=== PATIENT | male | born 1945 | race Caucasian/White ===

== ENCOUNTER 2021-11-25 13:01 | Observation (INO) | payer MEDICARE, OTHER ==
[2021-11-25] MEDS ORDERED: BACIGUENT PACKET ONE (13:26)
[2021-11-25] MEDS: Sodium Chloride 0.9% 1000 ML 1,000 ML IV SCH (13:33)
[2021-11-25] MEDS ORDERED: BACIGUENT PACKET TP ONE (13:43)
[2021-11-25 13:50] LABS: Absolute Neutrophil Ct (ANC) 3.95 x10^3/uL (1.4-6.9); Basophil (Absolute #) 0.02 x10^3/uL (0-0.4); Eosinophil % 0.4 % (0.00-5.0); Eosinophil (Absolute #) 0.02 x10^3/uL (0-0.5); Hematocrit 32.1 % (42-50); Hemoglobin 10.2 g/dL (12.5-18.0); Lymphocyte (Absolute #) 1.18 x10^3/uL (1.0-4.6); Lymphocytes % 20.8 % (24.0-44.0); Mean Cell Volume 96.4 fL (78-100); Mean Corpuscular Hemoglobin 30.6 pg (26-32); Mean Corpuscular Hgb Concent. 31.8 g/dL (32-36); Mean Platelet Volume 9.5 fL (7.5-11.0); Monocyte (Absolute #) 0.48 x10^3/uL (0.0-1.3); Monocytes % 8.5 % (0.0-12.0); Neutrophil % 69.7 % (36.0-66.0); Platelet Count 166 x10^3/uL (150-450); Red Blood Count 3.33 x10^6/uL (4.1-5.6); Red Cell Distribution Width 13.2 % (11.5-14.0); White Blood Count 5.7 x10^3/uL (4.0-10.5)
[2021-11-25 13:56] LABS: ALBUMIN 3.1 g/dL (3.5-5.0); ALKALINE PHOSPHATASE 134 U/L (38-126); ANION GAP 9.9 MEQ/L (5-15); BLOOD UREA NITROGEN 14 mg/dL (9-20); CHLORIDE 104 mmol/L (98-107); Calcium 8.9 mg/dL (8.4-10.2); Carbon Dioxide 29 mmol/L (22-30); EST GLOMERULAR FILTRATION RATE > 60.0 ML/MIN; Glucose 91 mg/dL (74-106); Potassium 3.9 mmol/L (3.5-5.1); SGOT/AST 37 U/L (17-59); SGPT/ALT 15 U/L (0-50); SODIUM 138 mmol/L (137-145); Total Protein 6.9 g/dL (6.3-8.2)
--- NOTE | 2021-11-25 14:06 | XRAY ---
Indication: Confusion. Comparison: None Portable chest hyperinflated and clear with a few incidental tiny calcified granulomas. Heart not enlarged with left central venous access catheter. Bony thorax intact with mild osteopenia, advanced bilateral shoulder degenerative arthropathy, mild double curvature scoliosis, and remote T11-T12 compression fractures. Impression: Nonacute chest with chronic features.
--- NOTE | 2021-11-25 14:08 | XRAY ---
Indication: Injection to right knee. Comparison: None AP/crosstable lateral right knee using portable technique demonstrates posterior femur shaft cortical fracture of uncertain chronicity. Elsewhere osteopenia, total knee arthroplasty with intact prosthesis, chronic appearing tibial deformity presumed sequela of old injury, and moderate scattered vascular calcifications.
[2021-11-25 14:15] LABS: Appearance CLEAR (CLEAR); Bilirubin NEGATIVE (NEGATIVE); Dipstick done @ ? MAIN LAB; Glucose NEGATIVE (NEGATIVE); Ketones SMALL-15 (NEGATIVE); Nitrite NEGATIVE (NEGATIVE); Ph 6.5 (5-6); Protein,Urine Dip 30 (Negative); RBC MODERATE Ery/ul (0-5); Specific Gravity 1.025 (1.005-1.025); Urobilinogen 0.2 mg/dL (0-1)
[2021-11-25 14:17] LABS: Bacteria FEW /HPF (NEGATIVE); Epithelial Cells RARE /HPF (FEW); Mucus SLIGHT /HPF (NEGATIVE); RBC 26-50 /HPF (0-2); WBC 26-50 /HPF (0-5)
[2021-11-25 14:19] LABS: Urine Cultured Indicated? YES
--- NOTE | 2021-11-25 14:38 | ERPHSYRPT ---
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 Patient A+O X 3. Patient's skin pale, warm and dry. Patient's POA states patient has been having intermittent confusion and doesn't remember him coming to check on him several times yesterday and today. Patient has infected wounds noted to RLE. Patient complains of right elbow pain and joint pain 5/10. 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 The assessment [facility] that yesterday he was more confused he seemed very out of it and was not even fully dressed yesterday. The caregiver did visit him 4 times today he seemed better but he decided to bring him to the ER. He is followed for his hemophilia at [facility] and he is followed for chronic infection of an artificial knee at wound care at [facility]. Caregiver is concerned that this might represent a recurrence of generalized sepsis since he has been confused with infection in the past.Presently he is on doxycycline and a culture was done at [facility] well want wound care on 11 21 which grew negative.The caregiver also reports that the patient has infection in the right leg which is not responded to antibiotics he was told that the only cure would be to amputate the right lower extremity just below the hip but that was not done because the risk of surgery for this patient is too great. Timing/Duration: day(s) (2) Severity: moderate Associated Symptoms: loss of appetite, malaise, weakness Allergies/Adverse Reactions: No Known Drug Allergies Allergy (Verified 11/25/21 13:10) Home Medications: Bisacodyl 5 mg [Dulcolax 5 mg] 2 tab PO BID 09/28/12 [History] Calcium Carbonate/Vitamin D3 [Calcium 600 + Vit D Tablet] 1 each PO BID 09/28/12 [History] Docusate Sodium 100 mg [Colace 100 MG] 2 tab PO BID 09/28/12 [History] Factor XIII [Corifact] 3,000 units IV DAILY 09/28/12 [History] Loratadine 10 mg [Claritin 10 mg] 10 mg PO BID 09/28/12 [History] Lorazepam 1 mg [Ativan 1 MG] 1 - 2 mg PO HS PRN 09/28/12 [History] Methadone HCl 10 mg [DOLOPHINE 10MG Tablet] 4 - 6 tab PO Q4-6HPRN PRN 09/28/12 [History] Celecoxib [Celebrex] 200 mg PO DAILY 01/03/13 [History] Fluticasone Propionate [Flonase] 16 gm NS DAILY 01/03/13 [History] Multivits,Th W-Ca,Fe,Oth Min [Spectravite] 1 each PO DAILY 01/03/13 [History] Hx Tetanus, Diphtheria Vaccination/Date Given: No Hx Influenza Vaccination/Date Given: Yes (02/25) Hx Pneumococcal Vaccination/Date Given: Yes (unknown when) Immunizations Up to Date: Yes Travel Risk - International Travel Have you traveled outside of the country in past 3 weeks: No - Coronavirus Screening Are you exhibiting any of the following symptoms?: No Close contact with a COVID-19 positive Pt in past 14-21 Days: No - Vaccine Status Have you recieved a Covid-19 vaccination: Yes Nurse Sitter: Unknown - Vaccination Dates Date of 2cond Vaccination (if applicable): na Dates if Unknown: na - Review of Systems Constitutional: Lethargy, Malaise, Weakness Eyes: No Symptoms Ears, Nose, & Throat: No Symptoms Respiratory: No Cough, No Dyspnea Cardiac: No Chest Pain, No Edema, No Syncope Abdominal/Gastrointestinal: No Abdominal Pain, No Nausea, No Vomiting, No Diarrhea Genitourinary Symptoms: No Dysuria Musculoskeletal: Other (Examination of the lower extremities show surgical scars over both legs the right leg has a medullary nely both in the femur and in the tibia and a total artificial knee. It is red and his has several weeping areas and apparently there is over ulcer which extends to the bone. This is according to t) Skin: Cellulitis, Decubiti, Skin Lesions Neurological: Focal Weakness Psychological: No Symptoms Endocrine: Polyuria Hematologic/Lymphatic: Easy Bleeding, Easy Bruising Immunological/Allergic: No Symptoms - Past Medical History Pertinent Past Medical History: Yes Neurological History: No Pertinent History ENT History: No Pertinent History Cardiac History: No Pertinent History Respiratory History: No Pertinent History Endocrine Medical History: No Pertinent History Musculoskeletal History: Osteoarthritis, Osteoporosis GI Medical History: Cirrhosis History: No Pertinent History Psycho-Social History: No Pertinent History Male Reproductive Disorders: No Pertinent History Other Medical History: B TKA, R JEFF. Hx of hemophilia - Past Surgical History Past Surgical History: Yes Neuro Surgical History: No Pertinent History Cardiac: No Pertinent History Respiratory: No Pertinent History Gastrointestinal: No Pertinent History Genitourinary: No Pertinent History Musculoskeletal: Joint Replacement, Orthopedic Surgery Male Surgical History: No Pertinent History Other Surgical History: left elbow spurs removed, Bilateral knee replacements, Left hip replacement. - Social History Smoking Status: Never smoker Exposure to second hand smoke: No Drug Use: none Patient Lives Alone: Yes - Nursing Vital Signs Nursing Vital Signs: Initial Vital Signs Temperature 98.6 F 11/25/21 13:11 Pulse Rate 79 11/25/21 13:11 Respiratory Rate 19 11/25/21 13:11 Blood Pressure 181/93 11/25/21 13:11 O2 Sat by Pulse Oximetry 100 11/25/21 13:11 Pain Scale Pain Intensity 5 - Physical Exam General Appearance: mild distress Eye Exam: PERRL/EOMI, eyes nml inspection Ears, Nose, Throat Exam: normal ENT inspection Neck Exam: normal inspection, non-tender, supple, full range of motion Respiratory Exam: normal breath sounds, lungs clear, No respiratory distress Cardiovascular Exam: regular rate/rhythm, normal heart sounds, normal peripheral pulses Gastrointestinal/Abdomen Exam: soft, normal bowel sounds, No tenderness, No mass Extremity Exam: other (Both lower extremities have had knee replacements with medullary rods. The right leg is swollen has weeping lesions has ulcers and is warm to the touch and tender.) Neurologic Exam: alert, oriented x 3, cooperative Skin Exam: ecchymosis Lymphatic Exam: No adenopathy SpO2 Interpretation: normal SpO2: 100 O2 Delivery: Room Air - Course Nursing assessment & vital signs reviewed: Yes EKG Interpreted by Me: RATE, Sinus Rhythm, Right Muse Deviation, LAFB, Right [place] Block, Non-specific ST Changes - Radiology Exams Chest X-ray Interpretation: Reviewed by me Right Knee X-ray Interpretation: Reviewed by me Ordered Tests: Active Orders 24 hr Category Date Time Status CHEST 1 VIEW (PORTABLE) Stat Exams 11/25/21 13:23 Completed KNEE (1 OR 2 VIEW) Stat Exams 11/25/21 13:23 Completed BLOOD CULTURE Stat Lab 11/25/21 13:17 Received CBC W DIFF Stat Lab 11/25/21 13:30 Completed CMP Stat Lab 11/25/21 13:30 Completed CULTURE,URINE Stat Lab 11/25/21 13:58 Received CULTURE,WOUND Stat Lab 11/25/21 13:25 Received Lactic Acid Stat Lab 11/25/21 13:30 Completed SED RATE [Erythrocyte Sedimentation Rate] Stat Lab 11/25/21 14:06 Ordered UA W/RFX CULTURE Stat Lab 11/25/21 13:58 Completed Medication Summary Generic Name Dose Route Start Last Admin Trade Name Freq PRN Reason Stop Dose Admin Sodium Chloride 1,000 mls @ 100 mls/hr 11/25/21 13:30 11/25/21 13:33 Sodium Chloride 0.9% 1000 Ml IV 12/25/21 13:29 100 mls/hr .Q10H CHUYITA Administration Vancomycin HCl 1 gm in 200 mls @ 125 mls/hr 11/25/21 15:17 Vancomycin 1 Gram/200 Ml Bag IV 11/25/21 16:52 STAT ONE Metronidazole 500 mg in 100 mls @ 200 mls/hr 11/25/21 15:19 11/25/21 15:24 Flagyl 500 Mg Ivpb IV 11/25/21 15:48 200 mls/hr STAT STA 200 mls/hr Administration Ceftazidime 2 gm/ Dextrose 100 mls @ 200 mls/hr 11/25/21 15:30 IV 12/25/21 15:29 Q8H CHUYITA Discontinued Medications Generic Name Dose Route Start Last Admin Trade Name Freq PRN Reason Stop Dose Admin Bacitracin Zinc Confirm 11/25/21 13:26 Bacitracin Packet 1 Each Pckt Administered 11/25/21 13:27 Dose 10 each .ROUTE .STK-MED ONE Bacitracin Zinc 9 each 11/25/21 13:43 11/25/21 13:44 Bacitracin Packet 1 Each Pckt TP 11/25/21 13:44 9 each STAT ONE Administration Metronidazole Confirm 11/25/21 15:23 Flagyl 500 Mg Ivpb Administered 11/25/21 15:24 Dose 500 mg in 100 mls @ ud IV .STK-MED ONE Lab/Rad Data: Laboratory Result Diagrams 11/25/21 13:30 11/25/21 13:30 Laboratory Results 11/25/21 11/25/21 11/25/21 Range/Units 13:58 13:30 13:30 WBC (4.0-10.5) x10^3/uL RBC (4.1-5.6) x10^6/uL Hgb (12.5-18.0) g/dL Hct (42-50) % MCV (78-100) fL MCH (26-32) pg MCHC (32-36) g/dL RDW (11.5-14.0) % Plt Count (150-450) x10^3/uL MPV (7.5-11.0) fL Gran % (36.0-66.0) % Immature Gran % (Auto) (0.00-0.4) % Nucleat RBC Rel Count (0.00-0.1) % Eos # (Auto) (0-0.5) x10^3/uL Immature Gran # (Auto) (0.00-0.03) x10^3u/L Absolute Lymphs (auto) (1.0-4.6) x10^3/uL Absolute Monos (auto) (0.0-1.3) x10^3/uL Absolute Nucleated RBC (0.00-0.01) x10^3u/L Lymphocytes % (24.0-44.0) % Monocytes % (0.0-12.0) % Eosinophils % (0.00-5.0) % Basophils % (0.0-0.4) % Absolute Granulocytes (1.4-6.9) x10^3/uL Basophils # (0-0.4) x10^3/uL Sodium 138 (137-145) mmol/L Potassium 3.9 (3.5-5.1) mmol/L Chloride 104 (98-107) mmol/L Carbon Dioxide 29 (22-30) mmol/L Anion Gap 9.9 (5-15) MEQ/L BUN 14 (9-20) mg/dL Creatinine 0.80 (0.66-1.25) mg/dL Estimated GFR > 60.0 ML/MIN Glucose 91 (74-106) mg/dL Lactic Acid 0.8 (0.4-2.0) Calcium 8.9 (8.4-10.2) mg/dL Total Bilirubin 0.80 (0.2-1.3) mg/dL AST 37 (17-59) U/L ALT 15 (0-50) U/L Alkaline Phosphatase 134 H (38-126) U/L Serum Total Protein 6.9 (6.3-8.2) g/dL Albumin 3.1 L (3.5-5.0) g/dL Urinalys Dipstick Clnc MAIN LAB Urine Color YELLOW (YELLOW) Urine Appearance CLEAR (CLEAR) Urine pH 6.5 (5-6) Ur Specific [place] 1.025 (1.005-1.025) POC Urine Protein Conf 30 (Negative) Urine Ketones SMALL-15 (NEGATIVE) Urine Nitrite NEGATIVE (NEGATIVE) Urine Bilirubin NEGATIVE (NEGATIVE) Urine Urobilinogen 0.2 (0-1) mg/dL Urine Leukocytes SMALL (NEGATIVE) Urine WBC (Auto) 26-50 (0-5) /HPF Urine RBC (Auto) 26-50 (0-2) /HPF U Epithel Cells (Auto) RARE (FEW) /HPF Urine Bacteria (Auto) FEW (NEGATIVE) /HPF Urine RBC MODERATE (0-5) Polo/ul Urine Mucus (Auto) SLIGHT (NEGATIVE) /HPF Ur Culture Indicated? YES Urine Glucose NEGATIVE (NEGATIVE) mg/dL 11/25/21 Range/Units 13:30 WBC 5.7 (4.0-10.5) x10^3/uL RBC 3.33 L (4.1-5.6) x10^6/uL Hgb 10.2 L (12.5-18.0) g/dL Hct 32.1 L (42-50) % MCV 96.4 (78-100) fL MCH 30.6 (26-32) pg MCHC 31.8 L (32-36) g/dL RDW 13.2 (11.5-14.0) % Plt Count 166 (150-450) x10^3/uL MPV 9.5 (7.5-11.0) fL Gran % 69.7 H (36.0-66.0) % Immature Gran % (Auto) 0.2 (0.00-0.4) % Nucleat RBC Rel Count 0.0 (0.00-0.1) % Eos # (Auto) 0.02 (0-0.5) x10^3/uL Immature Gran # (Auto) 0.01 (0.00-0.03) x10^3u/L Absolute Lymphs (auto) 1.18 (1.0-4.6) x10^3/uL Absolute Monos (auto) 0.48 (0.0-1.3) x10^3/uL Absolute Nucleated RBC 0.00 (0.00-0.01) x10^3u/L Lymphocytes % 20.8 L (24.0-44.0) % Monocytes % 8.5 (0.0-12.0) % Eosinophils % 0.4 (0.00-5.0) % Basophils % 0.4 (0.0-0.4) % Absolute Granulocytes 3.95 (1.4-6.9) x10^3/uL Basophils # 0.02 (0-0.4) x10^3/uL Sodium (137-145) mmol/L Potassium (3.5-5.1) mmol/L Chloride (98-107) mmol/L Carbon Dioxide (22-30) mmol/L Anion Gap (5-15) MEQ/L BUN (9-20) mg/dL Creatinine (0.66-1.25) mg/dL Estimated GFR ML/MIN Glucose (74-106) mg/dL Lactic Acid (0.4-2.0) Calcium (8.4-10.2) mg/dL Total Bilirubin (0.2-1.3) mg/dL AST (17-59) U/L ALT (0-50) U/L Alkaline Phosphatase (38-126) U/L Serum Total Protein (6.3-8.2) g/dL Albumin (3.5-5.0) g/dL Urinalys Dipstick Clnc Urine Color (YELLOW) Urine Appearance (CLEAR) Urine pH (5-6) Ur Specific [place] (1.005-1.025) POC Urine Protein Conf (Negative) Urine Ketones (NEGATIVE) Urine Nitrite (NEGATIVE) Urine Bilirubin (NEGATIVE) Urine Urobilinogen (0-1) mg/dL Urine Leukocytes (NEGATIVE) Urine WBC (Auto) (0-5) /HPF Urine RBC (Auto) (0-2) /HPF U Epithel Cells (Auto) (FEW) /HPF Urine Bacteria (Auto) (NEGATIVE) /HPF Urine RBC (0-5) Polo/ul Urine Mucus (Auto) (NEGATIVE) /HPF Ur Culture Indicated? Urine Glucose (NEGATIVE) mg/dL - Progress Progress: unchanged Discussed with : Rosa Elena (Dr. Sanders will admit the patient here Pending transfer to [facility]), Other (We did speak with Dr. 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 Addi guerra who agreed to admit him) - Departure Departure Disposition: Observation Clinical Impression: Chronic osteomyelitis involving lower leg Condition: Fair Critical Care Time: No Referrals: PAULETTE PURI MD [Primary Care Provider] - Follow up/PCP as directed
[2021-11-25] MEDS ORDERED: VANCOMYCIN 1 GRAM/200 ML BAG 1 GM/200 ML PIGGYBACK IV ONE ×2 (15:17→16:03)
[2021-11-25] MEDS ORDERED: FLAGYL 500 MG IVPB 500 MG/100 ML BAG IV STA (15:19)
[2021-11-25] MEDS ORDERED: FLAGYL 500 MG IVPB 500 MG/100 ML BAG IV ONE (15:23)
[2021-11-25] MEDS ORDERED: Zofran 4 MG/2 ML VIAL IV PRN (15:33)
[2021-11-25 16:00] LABS: INFLUENZA A NEGATIVE (NEGATIVE); INFLUENZA B NEGATIVE (NEGATIVE); RESPIRATORY SYNCTIAL VIRUS NEGATIVE (Negative); SARS-CoV-2 Xpert Express NEGATIVE (NEGATIVE)
[2021-11-25] MEDS ORDERED: VANCOMYCIN 1 GRAM/200 ML BAG 1 GM/200 ML PIGGYBACK IV SCH (16:15)
[2021-11-25] MEDS ORDERED: DOLOPHINE 10MG Tablet ONE (18:06)
[2021-11-25] MEDS: Fortaz/Tazicef 2 GM in D5w 100ML Mini Bag 100 ML 100 ML IV SCH (18:11)
[2021-11-25] MEDS: FLAGYL 500 MG IVPB 500 MG/100 ML BAG IV SCH (18:47)
--- NOTE | 2021-11-25 21:45 | PCM.HP ---
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 The assessment by his caregiver and power of manager car is that yesterday he was more confused he seemed very out of it and was not even fully dressed yesterday. The caregiver did visit him 4 times today he seemed better but he decided to bring him to the ER. He is followed for his hemophilia at [facility] and he is followed for chronic infection of an artificial knee at wound care at [facility]. Caregiver is concerned that this might represent a recurrence of generalized sepsis since he has been confused with infection in the past.Presently he is on doxycycline and a culture was done at [facility] well want wound care on 11 21 which grew negati ve.The caregiver also reports that the patient has infection in the right leg which is not responded to antibiotics he was told that the only cure would be to amputate the right lower extremity just below the hip but that was not done because the risk of surgery for this patient is too great. Timing/Duration: day(s) (2) Severity: moderate Associated Symptoms: loss of appetite, malaise, weakness - Review of Systems Constitutional: No Fever, No Chills Eyes: No Symptoms Ears, Nose, & Throat: No Symptoms Respiratory: No Cough, No Short Of Breath Cardiac: No Chest Pain, No Edema, No Syncope Abdominal/Gastrointestinal: No Abdominal Pain, No Nausea, No Vomiting, No Diarrhea Genitourinary Symptoms: No Dysuria Musculoskeletal: Joint Redness, Joint Pain, No Back Pain, No Neck Pain Skin: No Rash Neurological: No Dizziness, No Focal Weakness, No Sensory Changes Psychological: No Symptoms Endocrine: No Symptoms Hematologic/Lymphatic: No Symptoms Immunological/Allergic: No Symptoms Medications & Allergies Home Medications: Home Medication List Factor XIII [Corifact] 3,000 units IV BID 09/28/12 [History Confirmed 11/25/21] Lorazepam 1 mg [Ativan 1 MG] 1 - 2 mg PO HS PRN 09/28/12 [History Confirmed 11/25/21] Methadone HCl 10 mg [DOLOPHINE 10MG Tablet] 2 tab PO TID PRN PRN 09/28/12 [History Confirmed 11/25/21] Celecoxib [Celebrex] 200 mg PO BID 01/03/13 [History Confirmed 11/25/21] Docusate Sodium 100 mg [Docusate Sodium 100 MG] 100 mg PO DAILY 11/25/21 [History Confirmed 11/25/21] Famotidine 20 mg PO BID 11/25/21 [History Confirmed 11/25/21] Folic Acid/Vit B Complex and C [B-Complex Plus Vitamin C] 1 each PO DAILY 11/25/21 [History Confirmed 11/25/21] Gabapentin [Neurontin ] 1 - 2 tab PO TID 11/25/21 [History Confirmed 11/25/21] Oxycodone HCl 15 mg PO Q4H PRN PRN 11/25/21 [History Confirmed 11/25/21] Pregabalin 50 mg [Lyrica 50MG] 50 mg PO BID 11/25/21 [History Confirmed 11/25/21] ondansetron HCL [Zofran] 4 mg PO DAILY 11/25/21 [History Confirmed 11/25/21] Allergies/Adverse Reactions: Allergies Allergy/AdvReac Type Severity Reaction Status Date / Time No Known Drug Allergies Allergy Verified 11/25/21 17:54 - Past Medical History Past Medical History: Yes Neurological History: No Pertinent History ENT History: No Pertinent History Cardiac History: No Pertinent History Respiratory History: No Pertinent History Endocrine Medical History: No Pertinent History Musculoskelatal History: Osteoarthritis, Osteoporosis GI Medical History: Cirrhosis History: No Pertinent History Pyscho-Social History: No Pertinent History Male Reproductive Disorders: No Pertinent History Comment: Bilat Total knee, R total hip. Hx of hemophilia - Past Surgical History Past Surgical History: Yes Neuro Surgical History: No Pertinent History Cardiac History: No Pertinent History Respiratory Surgery: No Pertinent History GI Surgical History: No Pertinent History Genitourinary Surgical Hx: No Pertinent History Musculskeletal Surgical Hx: Joint Replacement, Orthopedic Surgery Male Surgical History: No Pertinent History Other Surgical History: left elbow spurs removed, Bilateral knee replacements, Left hip replacement. - Social History Smoking Status: Never smoker Exposure to second hand smoke: No Alcohol: None Drug Use: none - Physical Exam Vital Signs: Vital Signs - 24 hr Temp Pulse Resp BP Pulse Ox 11/25/21 20:00 96.8 F 67 16 168/77 98 11/25/21 17:33 98.7 F 71 19 178/77 97 11/25/21 15:31 100 11/25/21 15:00 71 17 175/81 99 11/25/21 14:11 75 17 172/84 100 11/25/21 13:11 98.6 F 79 19 181/93 100 General Appearance: no apparent distress, alert Neurologic Exam: alert, oriented x 3, cooperative, normal mood/affect, nml cerebellar function, nml station & gait, sensation nml, No motor deficits Eye Exam: PERRL/EOMI, eyes nml inspection Ears, Nose, Throat Exam: normal ENT inspection, TMs normal, pharynx normal, moist mucous membranes Neck Exam: normal inspection, non-tender, supple, full range of motion Respiratory Exam: normal breath sounds, lungs clear, No respiratory distress Cardiovascular Exam: regular rate/rhythm, normal heart sounds, normal peripheral pulses Gastrointestinal/Abdomen Exam: soft, normal bowel sounds, No tenderness, No mass Back Exam: normal inspection, normal range of motion, No CVA tenderness, No vertebral tenderness Extremity Exam: normal inspection, normal range of motion, pelvis stable Skin Exam: normal color, warm, dry, No rash Lymphatic Exam: No adenopathy Results - Labs Lab/Micro Results: Lab Results-Last 24 Hours 11/25/21 11/25/21 11/25/21 Range/Units 13:30 13:30 13:30 WBC 5.7 (4.0-10.5) x10^3/uL RBC 3.33 L (4.1-5.6) x10^6/uL Hgb 10.2 L (12.5-18.0) g/dL Hct 32.1 L (42-50) % MCV 96.4 (78-100) fL MCH 30.6 (26-32) pg MCHC 31.8 L (32-36) g/dL RDW 13.2 (11.5-14.0) % Plt Count 166 (150-450) x10^3/uL MPV 9.5 (7.5-11.0) fL Gran % 69.7 H (36.0-66.0) % Immature Gran % (Auto) 0.2 (0.00-0.4) % Nucleat RBC Rel Count 0.0 (0.00-0.1) % Eos # (Auto) 0.02 (0-0.5) x10^3/uL Immature Gran # (Auto) 0.01 (0.00-0.03) x10^3u/L Absolute Lymphs (auto) 1.18 (1.0-4.6) x10^3/uL Absolute Monos (auto) 0.48 (0.0-1.3) x10^3/uL Absolute Nucleated RBC 0.00 (0.00-0.01) x10^3u/L Lymphocytes % 20.8 L (24.0-44.0) % Monocytes % 8.5 (0.0-12.0) % Eosinophils % 0.4 (0.00-5.0) % Basophils % 0.4 (0.0-0.4) % Absolute Granulocytes 3.95 (1.4-6.9) x10^3/uL Basophils # 0.02 (0-0.4) x10^3/uL ESR (0-15) mm/hr Sodium 138 (137-145) mmol/L Potassium 3.9 (3.5-5.1) mmol/L Chloride 104 (98-107) mmol/L Carbon Dioxide 29 (22-30) mmol/L Anion Gap 9.9 (5-15) MEQ/L BUN 14 (9-20) mg/dL Creatinine 0.80 (0.66-1.25) mg/dL Estimated GFR > 60.0 ML/MIN Glucose 91 (74-106) mg/dL Lactic Acid 0.8 (0.4-2.0) Calcium 8.9 (8.4-10.2) mg/dL Total Bilirubin 0.80 (0.2-1.3) mg/dL AST 37 (17-59) U/L ALT 15 (0-50) U/L Alkaline Phosphatase 134 H (38-126) U/L Serum Total Protein 6.9 (6.3-8.2) g/dL Albumin 3.1 L (3.5-5.0) g/dL Urinalys Dipstick Clnc Urine Color (YELLOW) Urine Appearance (CLEAR) Urine pH (5-6) Ur Specific Occidental (1.005-1.025) POC Urine Protein Conf (Negative) Urine Ketones (NEGATIVE) Urine Nitrite (NEGATIVE) Urine Bilirubin (NEGATIVE) Urine Urobilinogen (0-1) mg/dL Urine Leukocytes (NEGATIVE) Urine WBC (Auto) (0-5) /HPF Urine RBC (Auto) (0-2) /HPF U Epithel Cells (Auto) (FEW) /HPF Urine Bacteria (Auto) (NEGATIVE) /HPF Urine RBC (0-5) Polo/ul Urine Mucus (Auto) (NEGATIVE) /HPF Ur Culture Indicated? Urine Glucose (NEGATIVE) mg/dL Influenza Type A Ag (NEGATIVE) Influenza Type B Ag (NEGATIVE) RSV (PCR) (Negative) SARS-CoV-2 (PCR) (NEGATIVE) 11/25/21 11/25/21 11/25/21 Range/Units 13:58 14:06 15:10 WBC (4.0-10.5) x10^3/uL RBC (4.1-5.6) x10^6/uL Hgb (12.5-18.0) g/dL Hct (42-50) % MCV (78-100) fL MCH (26-32) pg MCHC (32-36) g/dL RDW (11.5-14.0) % Plt Count (150-450) x10^3/uL MPV (7.5-11.0) fL Gran % (36.0-66.0) % Immature Gran % (Auto) (0.00-0.4) % Nucleat RBC Rel Count (0.00-0.1) % Eos # (Auto) (0-0.5) x10^3/uL Immature Gran # (Auto) (0.00-0.03) x10^3u/L Absolute Lymphs (auto) (1.0-4.6) x10^3/uL Absolute Monos (auto) (0.0-1.3) x10^3/uL Absolute Nucleated RBC (0.00-0.01) x10^3u/L Lymphocytes % (24.0-44.0) % Monocytes % (0.0-12.0) % Eosinophils % (0.00-5.0) % Basophils % (0.0-0.4) % Absolute Granulocytes (1.4-6.9) x10^3/uL Basophils # (0-0.4) x10^3/uL ESR 52 H (0-15) mm/hr Sodium (137-145) mmol/L Potassium (3.5-5.1) mmol/L Chloride (98-107) mmol/L Carbon Dioxide (22-30) mmol/L Anion Gap (5-15) MEQ/L BUN (9-20) mg/dL Creatinine (0.66-1.25) mg/dL Estimated GFR ML/MIN Glucose (74-106) mg/dL Lactic Acid (0.4-2.0) Calcium (8.4-10.2) mg/dL Total Bilirubin (0.2-1.3) mg/dL AST (17-59) U/L ALT (0-50) U/L Alkaline Phosphatase (38-126) U/L Serum Total Protein (6.3-8.2) g/dL Albumin (3.5-5.0) g/dL Urinalys Dipstick Clnc MAIN LAB Urine Color YELLOW (YELLOW) Urine Appearance CLEAR (CLEAR) Urine pH 6.5 (5-6) Ur Specific Occidental 1.025 (1.005-1.025) POC Urine Protein Conf 30 (Negative) Urine Ketones SMALL-15 (NEGATIVE) Urine Nitrite NEGATIVE (NEGATIVE) Urine Bilirubin NEGATIVE (NEGATIVE) Urine Urobilinogen 0.2 (0-1) mg/dL Urine Leukocytes SMALL (NEGATIVE) Urine WBC (Auto) 26-50 (0-5) /HPF Urine RBC (Auto) 26-50 (0-2) /HPF U Epithel Cells (Auto) RARE (FEW) /HPF Urine Bacteria (Auto) FEW (NEGATIVE) /HPF Urine RBC MODERATE (0-5) Polo/ul Urine Mucus (Auto) SLIGHT (NEGATIVE) /HPF Ur Culture Indicated? YES Urine Glucose NEGATIVE (NEGATIVE) mg/dL Influenza Type A Ag NEGATIVE (NEGATIVE) Influenza Type B Ag NEGATIVE (NEGATIVE) RSV (PCR) NEGATIVE (Negative) SARS-CoV-2 (PCR) NEGATIVE (NEGATIVE) - Radiology Impressions Radiology Exams & Impressions: Radiology Procedures Category Date Time Status CHEST 1 VIEW (PORTABLE) Stat Exams 11/25/21 13:23 Completed KNEE (1 OR 2 VIEW) Stat Exams 11/25/21 13:23 Completed Assessment/Plan (1) Chronic osteomyelitis involving lower leg Current Visit: Yes Status: Acute Qualifiers: Laterality: right Qualified Code(s): M86.661 - Other chronic osteomyelitis, right tibia and fibula Assessment & Plan: Chief Complaint Diagnosis osteomylitis Allergies Allergy/AdvReac Type Severity Reaction Status Date / Time No Known Drug Allergies Allergy Verified 11/25/21 17:54 Vital Signs (Last 24 hours) Temp Pulse Resp BP Pulse Ox 11/25/21 20:00 96.8 F 67 16 168/77 98 11/25/21 17:33 98.7 F 71 19 178/77 97 11/25/21 15:31 100 11/25/21 15:00 71 17 175/81 99 11/25/21 14:11 75 17 172/84 100 11/25/21 13:11 98.6 F 79 19 181/93 100 Home Medications Medication Instructions Recorded Confirmed Last Taken Type Docusate Sodium 100 mg 100 mg PO DAILY 11/25/21 11/25/21 Unknown History [Docusate Sodium 100 MG] Famotidine 20 mg PO BID 11/25/21 11/25/21 Unknown History Folic Acid/Vit B Complex and C 1 each PO DAILY 11/25/21 11/25/21 Unknown History [B-Complex Plus Vitamin C] Gabapentin [Neurontin ] 1 - 2 tab PO TID 11/25/21 11/25/21 Unknown History Oxycodone HCl 15 mg PO Q4H PRN PRN 11/25/21 11/25/21 Unknown History Pregabalin 50 mg [Lyrica 50 mg PO BID 11/25/21 11/25/21 Unknown History 50MG] ondansetron HCL [Zofran] 4 mg PO DAILY 11/25/21 11/25/21 Unknown History Current Medications Generic Name Dose Route Start Last Admin Trade Name Freq PRN Reason Stop Dose Admin Celecoxib 200 mg 11/25/21 22:00 Celecoxib 100 Mg Capsule PO 12/25/21 21:59 BID CHUYITA Famotidine 20 mg 11/25/21 22:00 Famotidine 20 Mg Tablet PO 11/25/21 22:01 ONCE ONE Gabapentin 300 mg 11/25/21 22:00 Gabapentin 300 Mg Capsule PO 12/25/21 21:59 BID CHUYITA Sodium Chloride 1,000 mls @ 100 mls/hr 11/25/21 13:30 11/25/21 13:33 Sodium Chloride 0.9% 1000 Ml IV 12/25/21 13:29 100 mls/hr .Q10H CHUYITA Administration Ceftazidime 2 gm/ Dextrose 100 mls @ 200 mls/hr 11/25/21 15:30 11/25/21 18:11 IV 12/25/21 15:29 200 mls/hr Q8HT CHUYITA Administration Metronidazole 500 mg in 100 mls @ 200 mls/hr 11/25/21 18:00 11/25/21 18:47 Flagyl 500 Mg Ivpb IV 12/25/21 17:59 200 mls/hr Q6HT CHUYITA Administration Vancomycin HCl 500 gm/ Sodium 250 mls @ 125 mls/hr 11/26/21 22:00 Chloride IV 12/26/21 21:59 Q12HT CHUYITA Lorazepam 1 mg 11/25/21 22:00 Lorazepam 1 Mg Tablet PO 12/25/21 21:59 HS CHUYITA Methadone HCl 20 mg 11/25/21 22:00 11/25/21 18:11 Methadone Hcl 10 Mg Tab PO 11/30/21 21:59 20 mg TID CHUYITA Administration Miscellaneous Medication 1 ea 11/25/21 22:00 11/25/21 20:26 Miscellaneous Medication Order 1 Ea Each 11/25/21 22:01 1 ea NOW ONE Administration Ondansetron HCl 4 mg 11/25/21 15:33 Ondansetron Hcl 4 Mg/2 Ml Vial IV 12/25/21 15:32 Q6H PRN PRN NAUSEA/VOMITING Pregabalin 50 mg 11/25/21 22:00 Pregabalin 50 Mg Capsule PO 12/25/21 21:59 BID CHUYITA Discontinued Medications Generic Name Dose Route Start Last Admin Trade Name Freq PRN Reason Stop Dose Admin Bacitracin Zinc Confirm 11/25/21 13:26 Bacitracin Packet 1 Each Pckt Administered 11/25/21 13:27 Dose 10 each .ROUTE .STK-MED ONE Bacitracin Zinc 9 each 11/25/21 13:43 11/25/21 13:44 Bacitracin Packet 1 Each Pckt TP 11/25/21 13:44 9 each STAT ONE Administration Vancomycin HCl 1 gm in 200 mls @ 125 mls/hr 11/25/21 15:17 11/25/21 16:03 Vancomycin 1 Gram/200 Ml Bag IV 11/25/21 16:52 125 mls/hr STAT ONE 125 mls/hr Administration Metronidazole 500 mg in 100 mls @ 200 mls/hr 11/25/21 15:19 11/25/21 16:01 Flagyl 500 Mg Ivpb IV 11/25/21 15:48 Infused STAT STA Infusion Metronidazole Confirm 11/25/21 15:23 Flagyl 500 Mg Ivpb Administered 11/25/21 15:24 Dose 500 mg in 100 mls @ ud IV .STK-MED ONE Vancomycin HCl Confirm 11/25/21 16:03 Vancomycin 1 Gram/200 Ml Bag Administered 11/25/21 16:04 Dose 1 gm in 200 mls @ ud IV .STK-MED ONE Vancomycin HCl 1 gm in 200 mls @ 125 mls/hr 11/25/21 16:15 11/25/21 18:38 Vancomycin 1 Gram/200 Ml Bag IV 12/25/21 16:14 Not Given Q12H CHUYITA Methadone HCl Confirm 11/25/21 18:06 Methadone Hcl 10 Mg Tab Administered 11/25/21 18:07 Dose 20 mg .ROUTE .STK-MED ONE Intake & Output (Last 24 hours) 11/23/21 11/24/21 11/25/21 11/26/21 11:59 11:59 11:59 11:59 Intake Total 120 Balance 120 Weight 46.5 kg Microbiology Results (Last 24 hours) 11/25/21 13:58 Clean Catch Midstream Urine Culture - Pending 11/25/21 13:25 Skin - Right Front Wound Culture - Pending 11/25/21 13:30 Blood Blood Culture Gram Stain - Pending 11/25/21 13:30 Blood Blood Culture - Pending Laboratory Results (Last 24 hours) 11/25/21 11/25/21 11/25/21 15:10 14:06 13:58 WBC RBC Hgb Hct MCV MCH MCHC RDW Plt Count MPV Gran % Immature Gran % (Auto) Nucleat RBC Rel Count Eos # (Auto) Immature Gran # (Auto) Absolute Lymphs (auto) Absolute Monos (auto) Absolute Nucleated RBC Lymphocytes % Monocytes % Eosinophils % Basophils % Absolute Granulocytes Basophils # ESR 52 H Sodium Potassium Chloride Carbon Dioxide Anion Gap BUN Creatinine Estimated GFR Glucose Lactic Acid Calcium Total Bilirubin AST ALT Alkaline Phosphatase Serum Total Protein Albumin Urinalys Dipstick Clnc MAIN LAB Urine Color YELLOW Urine Appearance CLEAR Urine pH 6.5 Ur Specific Occidental 1.025 POC Urine Protein Conf 30 Urine Ketones SMALL-15 Urine Nitrite NEGATIVE Urine Bilirubin NEGATIVE Urine Urobilinogen 0.2 Urine Leukocytes SMALL Urine WBC (Auto) 26-50 Urine RBC (Auto) 26-50 U Epithel Cells (Auto) RARE Urine Bacteria (Auto) FEW Urine RBC MODERATE Urine Mucus (Auto) SLIGHT Ur Culture Indicated? YES Urine Glucose NEGATIVE Influenza Type A Ag NEGATIVE Influenza Type B Ag NEGATIVE RSV (PCR) NEGATIVE SARS-CoV-2 (PCR) NEGATIVE 11/25/21 11/25/21 11/25/21 13:30 13:30 13:30 WBC 5.7 RBC 3.33 L Hgb 10.2 L Hct 32.1 L MCV 96.4 MCH 30.6 MCHC 31.8 L RDW 13.2 Plt Count 166 MPV 9.5 Gran % 69.7 H Immature Gran % (Auto) 0.2 Nucleat RBC Rel Count 0.0 Eos # (Auto) 0.02 Immature Gran # (Auto) 0.01 Absolute Lymphs (auto) 1.18 Absolute Monos (auto) 0.48 Absolute Nucleated RBC 0.00 Lymphocytes % 20.8 L Monocytes % 8.5 Eosinophils % 0.4 Basophils % 0.4 Absolute Granulocytes 3.95 Basophils # 0.02 ESR Sodium 138 Potassium 3.9 Chloride 104 Carbon Dioxide 29 Anion Gap 9.9 BUN 14 Creatinine 0.80 Estimated GFR > 60.0 Glucose 91 Lactic Acid 0.8 Calcium 8.9 Total Bilirubin 0.80 AST 37 ALT 15 Alkaline Phosphatase 134 H Serum Total Protein 6.9 Albumin 3.1 L Urinalys Dipstick Clnc Urine Color Urine Appearance Urine pH Ur Specific Occidental POC Urine Protein Conf Urine Ketones Urine Nitrite Urine Bilirubin Urine Urobilinogen Urine Leukocytes Urine WBC (Auto) Urine RBC (Auto) U Epithel Cells (Auto) Urine Bacteria (Auto) Urine RBC Urine Mucus (Auto) Ur Culture Indicated? Urine Glucose Influenza Type A Ag Influenza Type B Ag RSV (PCR) SARS-CoV-2 (PCR) Orders (Last 24 hours) Category Date Time Status Bedrest ROUTINE Activity 11/25/21 15:34 Active Code Status Order ROUTINE Care 11/25/21 15:32 Active IV Care Q6H Care 11/25/21 15:32 Active Neuro Checks Q4H Care 11/25/21 15:[address] in Observation ROUTINE Care 11/25/21 15:32 Active Vital Signs Q4H Care 11/25/21 15:33 Active Weight,Daily 0600 Care 11/25/21 15:33 Active House Regular Diet Diet 11/25/21 Dinner Active CHEST 1 VIEW (PORTABLE) Stat Exams 11/25/21 13:23 Completed KNEE (1 OR 2 VIEW) Stat Exams 11/25/21 13:23 Completed BLOOD CULTURE Stat Lab 11/25/21 13:17 Received CBC W DIFF AM.LAB Lab 11/26/21 04:00 Ordered CBC W DIFF Stat Lab 11/25/21 13:30 Completed CMP AM.LAB Lab 11/26/21 04:00 Ordered CMP Stat Lab 11/25/21 13:30 Completed COVID/FLU/RSV Panel Stat Lab 11/25/21 15:10 Completed CULTURE,URINE Stat Lab 11/25/21 13:58 Received CULTURE,WOUND Stat Lab 11/25/21 13:25 Received Lactic Acid Stat Lab 11/25/21 13:30 Completed SED RATE [Erythrocyte Sedimentation Rate] Stat Lab 11/25/21 14:06 Completed UA W/RFX CULTURE Stat Lab 11/25/21 13:58 Completed Bacitracin Packet [Baciguent Packet] Med 11/25/21 13:26 Discontinued 10 each .ROUTE .STK-MED ONE Bacitracin Packet [Baciguent Packet] Med 11/25/21 13:43 Discontinued 9 each TP STAT ONE Ceftazidime Pentahydrate [Fortaz/Tazicef] 2 gm Med 11/25/21 15:30 Active D5w 100 ml [D5w 100ML Mini Bag 100 ML] 100 ml IV Q8HT Celecoxib 100 mg [celeBREX 100 MG] Med 11/25/21 22:00 Active 200 mg PO BID Famotidine 20 mg [Pepcid 20 MG] Med 11/25/21 22:00 Once 20 mg PO ONCE ONE Gabapentin [Neurontin ] Med 11/25/21 22:00 Active 300 mg PO BID Lorazepam 1 mg [Ativan 1 MG] Med 11/25/21 22:00 Active 1 mg PO HS Methadone HCl 10 mg [DOLOPHINE 10MG Tablet] Med 11/25/21 18:06 Discontinued 20 mg .ROUTE .STK-MED ONE Methadone HCl 10 mg [DOLOPHINE 10MG Tablet] Med 11/25/21 22:00 Active 20 mg PO TID Metronidazole 500 mg Premix [Flagyl 500 mg Ivpb] Med 11/25/21 18:00 Active 500 mg in 100 ml IV Q6HT Metronidazole 500 mg Premix [Flagyl 500 mg Ivpb] Med 11/25/21 15:19 Discontinued 500 mg in 100 ml IV STAT Metronidazole 500 mg Premix [Flagyl 500 mg Ivpb] Med 11/25/21 15:23 Discontinued 500 mg in 100 ml IV UD Miscellaneous Medication Order Med 11/25/21 22:00 Once 1 ea MC NOW ONE NaCl 0.9% 1000 ml [Sodium Chloride 0.9% 1000 ML] 1,000 Med 11/25/21 13:30 Active ml IV 100 mls/hr Ondansetron HCl 4 mg/2 ml [Zofran 4 MG/2 ML VIAL] Med 11/25/21 15:33 Active 4 mg IV Q6H PRN PRN Pregabalin 50 mg [Lyrica 50MG] Med 11/25/21 22:00 Active 50 mg PO BID Vancomycin HCl Inj [Vancocin Injection] 500 gm Med 11/26/21 22:00 Active NaCl 0.9% 250 ml [Sodium Chloride 0.9% 250 ML] 250 ml IV Q12HT Vancomycin/Water For Inj (Peg) [Vancomycin 1 Gram/200 Med 11/25/21 16:15 Discontinued ml Bag] 1 gm in 200 ml IV Q12H Vancomycin/Water For Inj (Peg) [Vancomycin 1 Gram/200 Med 11/25/21 15:17 Discontinued ml Bag] 1 gm in 200 ml IV STAT Vancomycin/Water For Inj (Peg) [Vancomycin 1 Gram/200 Med 11/25/21 16:03 Discontinued ml Bag] 1 gm in 200 ml IV UD Transfer Order Routine Transfer 11/25/21 Completed Code(s): M86.669 - OTHER CHRONIC OSTEOMYELITIS, UNSPECIFIED TIBIA AND FIBULA
[2021-11-25] MEDS: celeBREX 100 MG PO SCH (21:49)
[2021-11-25] MEDS: Lyrica 50MG PO SCH (21:49)
[2021-11-25] MEDS ORDERED: Miscellaneous Medication Order MC ONE (22:00)
[2021-11-25] MEDS ORDERED: Ativan 1 MG PO SCH (22:00)
[2021-11-25] MEDS ORDERED: NEURONTIN PO SCH (22:00)
[2021-11-25] MEDS ORDERED: DOLOPHINE 10MG Tablet PO SCH (22:00)
[2021-11-25] MEDS ORDERED: Pepcid 20 MG PO ONE (22:00)
[2021-11-25] MEDS: Oxy-IR 5 MG PO PRN (22:33)
[2021-11-26] MEDS: Fortaz/Tazicef 2 GM in D5w 100ML Mini Bag 100 ML 100 ML IV SCH ×5 (00:49→21:05)
[2021-11-26] MEDS: FLAGYL 500 MG IVPB 500 MG/100 ML BAG IV SCH ×5 (00:52→23:46)
[2021-11-26] MEDS: Sodium Chloride 0.9% 1000 ML 1,000 ML IV SCH ×3 (01:04→23:45)
[2021-11-26 05:56] LABS: Basophil (Absolute #) 0.02 x10^3/uL (0-0.4); Eosinophil % 5.4 % (0.00-5.0); Eosinophil (Absolute #) 0.15 x10^3/uL (0-0.5); Hematocrit 25.7 % (42-50); Lymphocyte (Absolute #) 0.97 x10^3/uL (1.0-4.6); Lymphocytes % 34.8 % (24.0-44.0); Mean Cell Volume 98.5 fL (78-100); Mean Corpuscular Hemoglobin 30.7 pg (26-32); Mean Corpuscular Hgb Concent. 31.1 g/dL (32-36); Monocyte (Absolute #) 0.35 x10^3/uL (0.0-1.3); Monocytes % 12.5 % (0.0-12.0); Neutrophil % 46.6 % (36.0-66.0); Platelet Count 112 x10^3/uL (150-450); Red Blood Count 2.61 x10^6/uL (4.1-5.6); Red Cell Distribution Width 13.5 % (11.5-14.0); White Blood Count 2.8 x10^3/uL (4.0-10.5)
[2021-11-26 06:24] LABS: ALBUMIN 2.2 g/dL (3.5-5.0); ALKALINE PHOSPHATASE 89 U/L (38-126); ANION GAP 7.2 MEQ/L (5-15); BLOOD UREA NITROGEN 13 mg/dL (9-20); CHLORIDE 109 mmol/L (98-107); Calcium 7.9 mg/dL (8.4-10.2); Carbon Dioxide 27 mmol/L (22-30); EST GLOMERULAR FILTRATION RATE > 60.0 ML/MIN; Glucose 77 mg/dL (74-106); Potassium 3.4 mmol/L (3.5-5.1); SGOT/AST 29 U/L (17-59); SGPT/ALT 11 U/L (0-50); SODIUM 139 mmol/L (137-145); Total Protein 5.1 g/dL (6.3-8.2)
[2021-11-26] MEDS ORDERED: Ativan 1 MG PO PRN (07:13)
[2021-11-26 07:27] LABS: Slide Review 1 YES
[2021-11-26] MEDS ORDERED: PATIENT OWN MEDICATION IV SCH (10:00)
[2021-11-26] MEDS: PATIENT OWN MEDICATION IV SCH (10:21)
[2021-11-26] MEDS: celeBREX 100 MG PO SCH ×2 (10:26→21:03)
[2021-11-26] MEDS: Pepcid 20 MG PO SCH ×2 (10:27→21:03)
[2021-11-26] MEDS: Docusate Sodium 100 MG PO SCH (10:27)
[2021-11-26] MEDS: DOLOPHINE 10MG Tablet PO PRN (10:27)
[2021-11-26] MEDS: Lyrica 50MG PO SCH ×2 (10:27→21:03)
[2021-11-26] MEDS: NEURONTIN PO SCH ×3 (10:28→21:12)
[2021-11-26] MEDS: VITA-BEE WITH C PO SCH (11:03)
[2021-11-26] MEDS ORDERED: PATIENT OWN MEDICATION IV PRN ×2 (20:00)
[2021-11-26] MEDS: Oxy-IR 5 MG PO PRN (21:26)
[2021-11-26] MEDS ORDERED: VANCOCIN IV SCH (22:00)
[2021-11-26] MEDS ORDERED: SODIUM CHLORIDE 0.9% IV SCH (22:00)
[2021-11-26] MEDS: VANCOCIN IV SCH (22:43)
[2021-11-26] MEDS: SODIUM CHLORIDE MINI IV SCH (22:43)
[2021-11-27] MEDS: FLAGYL 500 MG IVPB 500 MG/100 ML BAG IV SCH ×3 (05:06→16:53)
--- NOTE | 2021-11-27 07:53 | PCM.NOTE ---
Date and Time: 11/27/21 0752 Subjective Assessment: doing ok - Review of Systems Constitutional: No Fever, No Chills Eyes: No Symptoms Ears, Nose, & Throat: No Symptoms Respiratory: No Cough, No Short Of Breath Cardiac: No Chest Pain, No Edema, No Syncope Abdominal/Gastrointestinal: No Abdominal Pain, No Nausea, No Vomiting, No Diarrhea Genitourinary Symptoms: No Dysuria Musculoskeletal: No Back Pain, No Neck Pain Skin: No Rash Neurological: No Dizziness, No Focal Weakness, No Sensory Changes Psychological: No Symptoms Endocrine: No Symptoms Hematologic/Lymphatic: No Symptoms Immunological/Allergic: No Symptoms Objective Exam General Appearance: no apparent distress, alert Neurologic Exam: alert, oriented x 3, cooperative, normal mood/affect, nml cerebellar function, sensation nml, No motor deficits Skin Exam: normal color, warm, dry Eye Exam: PERRL, EOMI, eyes nml inspection Ears, Nose, Throat Exam: normal ENT inspection, pharynx normal, moist mucous membranes Neck Exam: normal inspection, non-tender, supple, full range of motion Respiratory Exam: normal breath sounds, lungs clear, No respiratory distress Cardiovascular Exam: regular rate/rhythm, normal heart sounds Gastrointestinal/Abdomen Exam: soft, No tenderness, No mass Extremity Exam: normal inspection, normal range of motion Back Exam: normal inspection, normal range of motion, No CVA tenderness, No vertebral tenderness Male Genitalia Exam: deferred Rectal Exam: deferred OBJECTIVE DATA Vital Signs: Vital Signs - 24 hr Temp Pulse Resp BP Pulse Ox 11/27/21 07:17 97.8 F 61 16 131/63 99 11/27/21 04:00 97.1 F 55 L 16 136/60 98 11/27/21 00:00 97.5 F 95 H 18 147/67 96 11/26/21 20:00 97.5 F 50 L 16 141/64 98 11/26/21 16:00 96.6 F 68 16 125/61 97 11/26/21 12:00 97.8 F 68 16 162/75 97 11/26/21 08:00 97.0 F 57 L 16 128/60 98 Pain Assessment - Last Documented Pain Intensity 0 Pain Scale Used 0-10 Pain Scale Intake and Output: Intake & Output 11/24/21 11/25/21 11/26/21 11/27/21 11:59 11:59 11:59 11:59 Intake Total 1770 1812 Output Total 125 350 Balance 1645 1462 Weight 49.2 kg 51.7 kg Radiology Exams: Radiology Procedures Category Date Time Status CHEST 1 VIEW (PORTABLE) Stat Exams 11/25/21 13:23 Completed KNEE (1 OR 2 VIEW) Stat Exams 11/25/21 13:23 Completed Multi-Disciplinary Progress Notes: Multi-Disciplinary Progress Notes 11/26/21 12:36 Case Management Note by Davida Barger WILL HOLD DC PLANNING AT THIS TIME- PATIENT WAITING ON A BED AT [facility] WILL HAVE A BED LATER TODAY Initialized on 11/26/21 12:36 - END OF NOTE 11/26/21 12:30 Case Management Note by Davida Barger PATIENT HAS [facility]. THEY WERE NOTIFIED PATIENT IS HERE OBS AND IS WAITI NG ON BED AT [facility]. THEY VERIFIED UNDERSTANDING. IF PLANS WOULD CHANGE AND PATIENT WOULD DC HOME FROM HERE- [facility] NEEDS TO BE NOTIFIED AT [phone]. THEY NEED FAXED THE DC INSTRUCTIONS, DC MED LIST AND DC SUMMARY ( IF AVAILABLE) TO [phone] Initialized on 11/26/21 12:30 - END OF NOTE Assessment/Plan (1) Chronic osteomyelitis involving lower leg Current Visit: Yes Status: Acute Qualifiers: Laterality: right Qualified Code(s): M86.661 - Other chronic osteomyelitis, right tibia and fibula Assessment & Plan: Chief Complaint Diagnosis pain in leg right side Allergies Allergy/AdvReac Type Severity Reaction Status Date / Time No Known Drug Allergies Allergy Verified 11/25/21 17:54 Vital Signs (Last 24 hours) Temp Pulse Resp BP Pulse Ox 11/27/21 07:17 97.8 F 61 16 131/63 99 11/27/21 04:00 97.1 F 55 L 16 136/60 98 11/27/21 00:00 97.5 F 95 H 18 147/67 96 11/26/21 20:00 97.5 F 50 L 16 141/64 98 11/26/21 16:00 96.6 F 68 16 125/61 97 11/26/21 12:00 97.8 F 68 16 162/75 97 11/26/21 08:00 97.0 F 57 L 16 128/60 98 Home Medications Medication Instructions Recorded Confirmed Last Taken Type Docusate Sodium 100 mg 100 mg PO DAILY 11/25/21 11/25/21 Unknown History [Docusate Sodium 100 MG] Famotidine 20 mg PO BID 11/25/21 11/25/21 Unknown History Folic Acid/Vit B Complex and C 1 each PO DAILY 11/25/21 11/25/21 Unknown History [B-Complex Plus Vitamin C] Gabapentin [Neurontin ] 1 - 2 tab PO TID 11/25/21 11/25/21 Unknown History Oxycodone HCl 15 mg PO Q4H PRN PRN 11/25/21 11/25/21 Unknown History Pregabalin 50 mg [Lyrica 50 mg PO BID 11/25/21 11/25/21 Unknown History 50MG] ondansetron HCL [Zofran] 4 mg PO DAILY 11/25/21 11/25/21 Unknown History Current Medications Generic Name Dose Route Start Last Admin Trade Name Freq PRN Reason Stop Dose Admin Celecoxib 200 mg 11/25/21 22:00 11/26/21 21:03 Celecoxib 100 Mg Capsule PO 12/25/21 21:59 200 mg BID CHUYITA Administration Docusate Sodium 100 mg 11/26/21 10:00 11/26/21 10:27 Docusate Sodium 100 Mg Capsule PO 12/26/21 09:59 100 mg DAILY CHUYITA Administration Famotidine 20 mg 11/26/21 10:00 11/26/21 21:03 Famotidine 20 Mg Tablet PO 12/26/21 09:59 20 mg BID CHUYITA Administration Gabapentin 300 - 600 mg 11/26/21 10:00 11/26/21 21:12 Gabapentin 300 Mg Capsule PO 12/26/21 09:59 300 mg TID CHUYITA Administration Sodium Chloride 1,000 mls @ 100 mls/hr 11/25/21 13:30 11/26/21 23:45 Sodium Chloride 0.9% 1000 Ml IV 12/25/21 13:29 100 mls/hr .Q10H CHUYITA Administration Metronidazole 500 mg in 100 mls @ 200 mls/hr 11/25/21 18:00 11/27/21 05:06 Flagyl 500 Mg Ivpb IV 12/25/21 17:59 200 mls/hr Q6HT CHUYITA Administration Vancomycin HCl 0.5 gm/ Sodium 100 mls @ 125 mls/hr 11/26/21 22:00 11/26/21 22:43 Chloride IV 12/26/21 21:59 125 mls/hr Q12HT CHUYITA Administration Ceftazidime 2 gm/ Dextrose 100 mls @ 200 mls/hr 11/26/21 10:00 11/26/21 21:05 IV 12/25/21 15:29 200 mls/hr Q12HT CHUYITA Administration Lorazepam 1 - 2 mg 11/26/21 07:13 11/26/21 21:04 Lorazepam 1 Mg Tablet PO 12/26/21 07:12 1 mg HS PRN PRN Administration ANXIETY Methadone HCl 20 mg 11/26/21 07:14 11/26/21 10:27 Methadone Hcl 10 Mg Tab PO 12/01/21 07:13 20 mg TID PRN PRN Administration PAIN Multivitamins 1 tab 11/26/21 10:00 11/26/21 11:03 Vitamin B Complex With Vit. C Tablet PO 12/26/21 09:59 Not Given DAILY CHUYITA Ondansetron HCl 4 mg 11/25/21 15:33 11/26/21 20:55 Ondansetron Hcl 4 Mg/2 Ml Vial IV 12/25/21 15:32 4 mg Q6H PRN PRN Administration NAUSEA/VOMITING Oxycodone HCl 15 mg 11/25/21 22:24 11/26/21 21:26 Oxycodone Hcl 5 Mg Ir Tab PO 11/30/21 22:23 15 mg Q4H PRN PRN Administration PAIN Recombinate-Factor 8 0 each 11/26/21 11:00 11/26/21 10:21 (Viii) IV 12/26/21 10:59 2,520 each 0800 CHUYITA Administration Recombinate-Factor 8 0 each 11/26/21 20:00 (Viii) IV 12/26/21 19:59 Q24H PRN Recombinate-Factor 8 2,520 each 11/26/21 20:00 11/26/21 21:03 (Viii) IV 12/26/21 19:59 2,520 each Q24H PRN Administration Pregabalin 50 mg 11/25/21 22:00 11/26/21 21:03 Pregabalin 50 Mg Capsule PO 12/25/21 21:59 50 mg BID CHUYITA Administration Discontinued Medications Generic Name Dose Route Start Last Admin Trade Name Gretel PRN Reason Stop Dose Admin Bacitracin Zinc Confirm 11/25/21 13:26 Bacitracin Packet 1 Each Pckt Administered 11/25/21 13:27 Dose 10 each .ROUTE .STK-MED ONE Bacitracin Zinc 9 each 11/25/21 13:43 11/25/21 13:44 Bacitracin Packet 1 Each Pckt TP 11/25/21 13:44 9 each STAT ONE Administration Famotidine 20 mg 11/25/21 22:00 11/25/21 21:53 Famotidine 20 Mg Tablet PO 11/25/21 22:01 20 mg ONCE ONE Administration Gabapentin 300 mg 11/25/21 22:00 11/25/21 21:49 Gabapentin 300 Mg Capsule PO 12/25/21 21:59 300 mg BID CHUYITA Administration Vancomycin HCl 1 gm in 200 mls @ 125 mls/hr 11/25/21 15:17 11/25/21 16:03 Vancomycin 1 Gram/200 Ml Bag IV 11/25/21 16:52 125 mls/hr STAT ONE 125 mls/hr Administration Metronidazole 500 mg in 100 mls @ 200 mls/hr 11/25/21 15:19 11/25/21 16:01 Flagyl 500 Mg Ivpb IV 11/25/21 15:48 Infused STAT STA Infusion Ceftazidime 2 gm/ Dextrose 100 mls @ 200 mls/hr 11/25/21 15:30 11/26/21 11:02 IV 12/25/21 15:29 Not Given Q8HT CHUYITA Metronidazole Confirm 11/25/21 15:23 Flagyl 500 Mg Ivpb Administered 11/25/21 15:24 Dose 500 mg in 100 mls @ ud IV .STK-MED ONE Vancomycin HCl Confirm 11/25/21 16:03 Vancomycin 1 Gram/200 Ml Bag Administered 11/25/21 16:04 Dose 1 gm in 200 mls @ ud IV .STK-MED ONE Vancomycin HCl 1 gm in 200 mls @ 125 mls/hr 11/25/21 16:15 11/25/21 18:38 Vancomycin 1 Gram/200 Ml Bag IV 12/25/21 16:14 Not Given Q12H CHUYITA Vancomycin HCl 500 gm/ Sodium 250 mls @ 125 mls/hr 11/26/21 22:00 Chloride IV 12/26/21 21:59 Q12HT CHUYITA Lorazepam 1 mg 11/25/21 22:00 11/25/21 21:49 Lorazepam 1 Mg Tablet PO 12/25/21 21:59 1 mg HS CHUYITA Administration Methadone HCl 20 mg 11/25/21 22:00 11/25/21 18:11 Methadone Hcl 10 Mg Tab PO 11/30/21 21:59 20 mg TID CHUYITA Administration Methadone HCl Confirm 11/25/21 18:06 Methadone Hcl 10 Mg Tab Administered 11/25/21 18:07 Dose 20 mg .ROUTE .STK-MED ONE Miscellaneous Medication 1 ea 11/25/21 22:00 11/25/21 20:26 Miscellaneous Medication Order 1 Ea Each MC 11/25/21 22:01 1 ea NOW ONE Administration Patient Own Med : 0 each 11/26/21 10:00 11/26/21 11:10 Recombinate-Factor 8 IV 12/26/21 09:59 Not Given (Viii) DAILY CHUYITA Intake & Output (Last 24 hours) 11/24/21 11/25/21 11/26/21 11/27/21 11:59 11:59 11:59 11:59 Intake Total 1770 1812 Output Total 125 350 Balance 1645 1462 Weight 49.2 kg 51.7 kg Microbiology Results (Last 24 hours) 11/25/21 13:58 Clean Catch Midstream Urine Culture - Preliminary NO GROWTH TO DATE 11/25/21 13:30 Blood Blood Culture Gram Stain - Final 11/25/21 13:30 Blood Blood Culture - Pending Orders (Last 24 hours) Category Date Time Status Ceftazidime Pentahydrate [Fortaz/Tazicef] 2 gm Med 11/26/21 10:00 Active D5w 100 ml [D5w 100ML Mini Bag 100 ML] 100 ml IV Q12HT Docusate Sodium 100 mg [Docusate Sodium 100 MG] Med 11/26/21 10:00 Active 100 mg PO DAILY Famotidine 20 mg [Pepcid 20 MG] Med 11/26/21 10:00 Active 20 mg PO BID Gabapentin [Neurontin ] Med 11/26/21 10:00 Active 300 - 600 mg PO TID Lorazepam 1 mg [Ativan 1 MG] Med 11/26/21 07:13 Active 1 - 2 mg PO HS PRN PRN Methadone HCl 10 mg [DOLOPHINE 10MG Tablet] Med 11/26/21 07:14 Active 20 mg PO TID PRN PRN Patient Own Med [Patient Own Medication] Med 11/26/21 20:00 Active 2,520 each IV Q24H PRN Patient Own Med [Patient Own Medication] Med 11/26/21 11:00 Active See Dose Instructions IV 0800 Patient Own Med [Patient Own Medication] Med 11/26/21 10:00 Discontinued See Dose Instructions IV DAILY Patient Own Med [Patient Own Medication] Med 11/26/21 20:00 Active See Dose Instructions IV Q24H PRN Vancomycin HCl Inj [Vancocin Injection] 0.5 gm Med 11/26/21 22:00 Active NaCl 0.9% 100 ml Mini-Bag Plus [Sodium Chloride 100ML MINI-BAG PLUS] 100 ml IV Q12HT Vancomycin HCl Inj [Vancocin Injection] 500 gm Med 11/26/21 22:00 Discontinued NaCl 0.9% 250 ml [Sodium Chloride 0.9% 250 ML] 250 ml IV Q12HT Vitamin B Comp W-C [Karlene-Bee with C] Med 11/26/21 10:00 Active 1 tab PO DAILY Patient Care Notes (Last 24 hours) 11/27/21 07:47 MECHANICAL SYSTEM TECHNICIAN Note by Hyacinth Anne pt weighed this am and weight was off so zeroed the bed and reweighed pt. pt weight this am is 51.7 kg this principal technologist reported the weight to nurse Kelvin De. Initialized on 11/27/21 07:47 - END OF NOTE 11/26/21 15:16 Nursing Note by Mireya Billy spoke again with Mariana at Dr. Leiva's office and she stated that she let the doctor know the pt's labs and condition. States that the doctor would just like for him to take the "major bleeding" dose of his factor medication. passed info on to Ricardo in pharmacy. Initialized on 11/26/21 15:16 - END OF NOTE 11/26/21 14:35 Nursing Note by Mireya Billy Spoke with a nurse at the pharmacy at Dr. Leiva's office. notified her of pt's swelling in elbow and hgb that dropped this morning. She is going to call one of the doctors and call me back on what next steps need to be. Initialized on 11/26/21 14:35 - END OF NOTE 11/26/21 12:36 Case Management Note by Davida Barger WILL HOLD DC PLANNING AT THIS TIME- PATIENT WAITING ON A BED AT [facility] WILL HAVE A BED LATER TODAY Initialized on 11/26/21 12:36 - END OF NOTE 11/26/21 12:30 Case Management Note by Davida Barger PATIENT HAS [facility]. THEY WERE NOTIFIED PATIENT IS HERE OBS AND IS WAITING ON BED AT [facility]. THEY VERIFIED UNDERSTANDING. IF PLANS WOULD CHANGE AND PATIENT WOULD DC HOME FROM HERE- [facility] NEEDS TO BE NOTIFIED AT [phone]. THEY NEED FAXED THE DC INSTRUCTIONS, DC MED LIST AND DC SUMMARY ( IF AVAILABLE) TO [phone] Initialized on 11/26/21 12:30 - END OF NOTE 11/26/21 08:42 Nursing Note by Mireya Billy Spoke with Shanell at [facility], she states that there are still no beds at this time but hopefully will be this afternoon. Code(s): M86.669 - OTHER CHRONIC OSTEOMYELITIS, UNSPECIFIED TIBIA AND FIBULA
[2021-11-27] MEDS: PATIENT OWN MEDICATION IV SCH (07:56)
[2021-11-27] MEDS: Lyrica 50MG PO SCH (10:11)
[2021-11-27] MEDS: celeBREX 100 MG PO SCH (10:11)
[2021-11-27] MEDS: Docusate Sodium 100 MG PO SCH (10:11)
[2021-11-27] MEDS: Pepcid 20 MG PO SCH (10:11)
[2021-11-27] MEDS: NEURONTIN PO SCH ×2 (10:12→15:42)
[2021-11-27] MEDS: Fortaz/Tazicef 2 GM in D5w 100ML Mini Bag 100 ML 100 ML IV SCH (10:12)
[2021-11-27] MEDS: SODIUM CHLORIDE MINI IV SCH (10:13)
[2021-11-27] MEDS: VANCOCIN IV SCH (10:13)
[2021-11-27] MEDS: VITA-BEE WITH C PO SCH (10:14)
[2021-11-27] MEDS: Sodium Chloride 0.9% 1000 ML 1,000 ML IV SCH ×2 (12:14)
[2021-11-27] MEDS ORDERED: PATIENT OWN MEDICATION IV PRN (12:45)
[2021-11-27 16:10] VITALS: BP 179/82; PULSE 84; O2SAT 97
[2021-11-27] MEDS: DOLOPHINE 10MG Tablet PO PRN (16:49)
--- NOTE | 2021-11-27 17:19 | PCM.DS ---
Discharge Summary Date of Admission: 11/25/21 17:16 Admitting Physician: MIKE MUNSON Primary Care Provider: PAULETTE PURI MD Allergies Allergies No Known Drug Allergies Allergy (Verified 11/25/21 17:54) Hospital Summary - Hospital Course Hospital Course: Chief Complaint Diagnosis pain in leg right side Allergies Allergy/AdvReac Type Severity Reaction Status Date / Time No Known Drug Allergies Allergy Verified 11/25/21 17:54 Vital Signs (Last 24 hours) Temp Pulse Resp BP Pulse Ox 11/27/21 16:00 98.6 F 84 16 179/82 97 11/27/21 12:00 97.4 F 62 16 173/93 96 11/27/21 07:17 97.8 F 61 16 131/63 99 11/27/21 04:00 97.1 F 55 L 16 136/60 98 11/27/21 00:00 97.5 F 95 H 18 147/67 96 11/26/21 20:00 97.5 F 50 L 16 141/64 98 Home Medications Medication Instructions Recorded Confirmed Last Taken Type Docusate Sodium 100 mg 100 mg PO DAILY 11/25/21 11/25/21 Unknown History [Docusate Sodium 100 MG] Famotidine 20 mg PO BID 11/25/21 11/25/21 Unknown History Folic Acid/Vit B Complex and C 1 each PO DAILY 11/25/21 11/25/21 Unknown History [B-Complex Plus Vitamin C Cplt] Gabapentin [Neurontin ] 1 - 2 tab PO TID 11/25/21 11/25/21 Unknown History Oxycodone HCl 15 mg PO Q4H PRN PRN 11/25/21 11/25/21 Unknown History Pregabalin 50 mg [Lyrica 50 mg PO BID 11/25/21 11/25/21 Unknown History 50MG] ondansetron HCL [Zofran] 4 mg PO DAILY 11/25/21 11/25/21 Unknown History Current Medications Generic Name Dose Route Start Last Admin Trade Name Freq PRN Reason Stop Dose Admin Celecoxib 200 mg 11/25/21 22:00 11/27/21 10:11 Celecoxib 100 Mg Capsule PO 12/25/21 21:59 200 mg BID CHUYITA Administration Docusate Sodium 100 mg 11/26/21 10:00 11/27/21 10:11 Docusate Sodium 100 Mg Capsule PO 12/26/21 09:59 100 mg DAILY CHUYITA Administration Famotidine 20 mg 11/26/21 10:00 11/27/21 10:11 Famotidine 20 Mg Tablet PO 12/26/21 09:59 20 mg BID CHUYITA Administration Gabapentin 300 - 600 mg 11/26/21 10:00 11/27/21 15:42 Gabapentin 300 Mg Capsule PO 12/26/21 09:59 300 mg TID CHUYITA Administration Sodium Chloride 1,000 mls @ 100 mls/hr 11/25/21 13:30 11/27/21 12:14 Sodium Chloride 0.9% 1000 Ml IV 12/25/21 13:29 100 mls/hr .Q10H CHUYITA Administration Metronidazole 500 mg in 100 mls @ 200 mls/hr 11/25/21 18:00 11/27/21 16:53 Flagyl 500 Mg Ivpb IV 12/25/21 17:59 200 mls/hr Q6HT CHUYITA Administration Vancomycin HCl 0.5 gm/ Sodium 100 mls @ 125 mls/hr 11/26/21 22:00 11/27/21 10:13 Chloride IV 12/26/21 21:59 125 mls/hr Q12HT CHUYITA Administration Ceftazidime 2 gm/ Dextrose 100 mls @ 200 mls/hr 11/26/21 10:00 11/27/21 10:12 IV 12/25/21 15:29 200 mls/hr Q12HT CHUYITA Administration Lorazepam 1 - 2 mg 11/26/21 07:13 11/26/21 21:04 Lorazepam 1 Mg Tablet PO 12/26/21 07:12 1 mg HS PRN PRN Administration ANXIETY Methadone HCl 20 mg 11/26/21 07:14 11/27/21 16:49 Methadone Hcl 10 Mg Tab PO 12/01/21 07:13 20 mg TID PRN PRN Administration PAIN Multivitamins 1 tab 11/26/21 10:00 11/27/21 10:14 Vitamin B Complex With Vit. C Tablet PO 12/26/21 09:59 1 tab DAILY CHUYITA Administration Ondansetron HCl 4 mg 11/25/21 15:33 11/26/21 20:55 Ondansetron Hcl 4 Mg/2 Ml Vial IV 12/25/21 15:32 4 mg Q6H PRN PRN Administration NAUSEA/VOMITING Oxycodone HCl 15 mg 11/25/21 22:24 11/26/21 21:26 Oxycodone Hcl 5 Mg Ir Tab PO 11/30/21 22:23 15 mg Q4H PRN PRN Administration PAIN Recombinate-Factor 8 2,520 each 11/26/21 20:00 11/26/21 21:03 (Viii) IV 12/26/21 19:59 2,520 each Q24H PRN Administration Recombinate-Factor 8 2,520 each 11/28/21 08:00 (Viii) IV 12/26/21 10:59 0800 CHUYITA Pregabalin 50 mg 11/25/21 22:00 11/27/21 10:11 Pregabalin 50 Mg Capsule PO 12/25/21 21:59 50 mg BID CHUYITA Administration Discontinued Medications Generic Name Dose Route Start Last Admin Trade Name Freq PRN Reason Stop Dose Admin Bacitracin Zinc Confirm 11/25/21 13:26 Bacitracin Packet 1 Each Pckt Administered 11/25/21 13:27 Dose 10 each .ROUTE .STK-MED ONE Bacitracin Zinc 9 each 11/25/21 13:43 11/25/21 13:44 Bacitracin Packet 1 Each Pckt TP 11/25/21 13:44 9 each STAT ONE Administration Famotidine 20 mg 11/25/21 22:00 11/25/21 21:53 Famotidine 20 Mg Tablet PO 11/25/21 22:01 20 mg ONCE ONE Administration Gabapentin 300 mg 11/25/21 22:00 11/25/21 21:49 Gabapentin 300 Mg Capsule PO 12/25/21 21:59 300 mg BID CHUYITA Administration Vancomycin HCl 1 gm in 200 mls @ 125 mls/hr 11/25/21 15:17 11/25/21 16:03 Vancomycin 1 Gram/200 Ml Bag IV 11/25/21 16:52 125 mls/hr STAT ONE 125 mls/hr Administration Metronidazole 500 mg in 100 mls @ 200 mls/hr 11/25/21 15:19 11/25/21 16:01 Flagyl 500 Mg Ivpb IV 11/25/21 15:48 Infused STAT STA Infusion Ceftazidime 2 gm/ Dextrose 100 mls @ 200 mls/hr 11/25/21 15:30 11/26/21 11:02 IV 12/25/21 15:29 Not Given Q8HT CHUYITA Metronidazole Confirm 11/25/21 15:23 Flagyl 500 Mg Ivpb Administered 11/25/21 15:24 Dose 500 mg in 100 mls @ ud IV .STK-MED ONE Vancomycin HCl Confirm 11/25/21 16:03 Vancomycin 1 Gram/200 Ml Bag Administered 11/25/21 16:04 Dose 1 gm in 200 mls @ ud IV .STK-MED ONE Vancomycin HCl 1 gm in 200 mls @ 125 mls/hr 11/25/21 16:15 11/25/21 18:38 Vancomycin 1 Gram/200 Ml Bag IV 12/25/21 16:14 Not Given Q12H CHUYITA Vancomycin HCl 500 gm/ Sodium 250 mls @ 125 mls/hr 11/26/21 22:00 Chloride IV 12/26/21 21:59 Q12HT CHUYITA Lorazepam 1 mg 11/25/21 22:00 11/25/21 21:49 Lorazepam 1 Mg Tablet PO 12/25/21 21:59 1 mg HS CHUYITA Administration Methadone HCl 20 mg 11/25/21 22:00 11/25/21 18:11 Methadone Hcl 10 Mg Tab PO 11/30/21 21:59 20 mg TID CHUYITA Administration Methadone HCl Confirm 11/25/21 18:06 Methadone Hcl 10 Mg Tab Administered 11/25/21 18:07 Dose 20 mg .ROUTE .STK-MED ONE Miscellaneous Medication 1 ea 11/25/21 22:00 11/25/21 20:26 Miscellaneous Medication Order 1 Ea Each 11/25/21 22:01 1 ea NOW ONE Administration Patient Own Med : 0 each 11/26/21 10:00 11/26/21 11:10 Recombinate-Factor 8 IV 12/26/21 09:59 Not Given (Viii) DAILY CHUYITA Recombinate-Factor 8 0 each 11/26/21 11:00 11/27/21 07:56 (Viii) IV 12/26/21 10:59 2,525 each 0800 CHUYITA Administration Recombinate-Factor 8 0 each 11/26/21 20:00 (Viii) IV 12/26/21 19:59 Q24H PRN Recombinate-Factor 8 1,248 each 11/27/21 12:45 (Viii) IV 12/26/21 19:59 Q24H PRN Intake & Output (Last 24 hours) 11/25/21 11/26/21 11/27/21 11/28/21 11:59 11:59 11:59 11:59 Intake Total 1770 2052 720 Output Total 125 350 300 Balance 1645 1702 420 Weight 49.2 kg 51.7 kg Microbiology Results (Last 24 hours) 11/25/21 13:30 Blood Blood Culture Gram Stain - Final 11/25/21 13:30 Blood Blood Culture - Preliminary Coagulase Negative Staph. Possible Contaminant. Clinical judgement required. NO FURTHER WORKUP WILL BE PERFORMED UNLESS PHYSICIAN REQUESTED WITHIN THE NEXT 72 HOURS 11/25/21 13:25 Skin - Right Front Wound Culture - Preliminary ORGANISMS ISOLATED ARE CONSISTENT WITH NORMAL SKIN SALO LIGHT GROWTH, NO PREDOMINANT ORGANISM 11/25/21 13:58 Clean Catch Midstream Urine Culture - Final <10K NORMAL SKIN SALO PROBABLE SKIN CONTAMINANT Orders (Last 24 hours) Category Date Time Status Miscellaneous Nursing Order ROUTINE Care 11/27/21 14:59 Active Discharge Routine Discharge 11/27/21 Ordered Discharge/Telephone Order Routine Discharge 11/27/21 15:02 Active Patient Own Med [Patient Own Medication] Med 11/27/21 12:45 Discontinued 1,248 each IV Q24H PRN Patient Own Med [Patient Own Medication] Med 11/28/21 08:00 Active 2,520 each IV 0800 Patient Own Med [Patient Own Medication] Med 11/26/21 20:00 Active 2,520 each IV Q24H PRN Patient Own Med [Patient Own Medication] Med 11/26/21 20:00 Discontinued See Dose Instructions IV Q24H PRN Vancomycin HCl Inj [Vancocin Injection] 0.5 gm Med 11/26/21 22:00 Active NaCl 0.9% 100 ml Mini-Bag Plus [Sodium Chloride 100ML MINI-BAG PLUS] 100 ml IV Q12HT Vancomycin HCl Inj [Vancocin Injection] 500 gm Med 11/26/21 22:00 Discontinued NaCl 0.9% 250 ml [Sodium Chloride 0.9% 250 ML] 250 ml IV Q12HT Patient Care Notes (Last 24 hours) 11/27/21 15:23 Nursing Note by Iris Lopez I faxed patients D/C paperwork to [facility] [phone]. and let them know of his d/c to home plan for today [phone]. Initialized on 11/27/21 15:23 - END OF NOTE 11/27/21 15:21 Nursing Note by Iris Lopez I faxed patients chart to [facility] [phone]. Initialized on 11/27/21 15:21 - END OF NOTE 11/27/21 14:29 Nursing Note by Marie De Spoke with Dr Munson and pt will be discharged this kalyan after his 1800 Flagyl dose. Spoke with pt and ELLIE Montaño about DC. Emphasized that important to keep wound center appt tomorrow at [place] and discuss plan for continued anthibiotic therapy. Notified Kim at Dr Leiva office about plan and to see if she wants to see him sooner than scheduled appt. Office will call back. Pt instructed to take major dose of Factor 8 med this kalyan and tomorrow as per Dr Leiva and understanding verbalized. Initialized on 11/27/21 14:29 - END OF NOTE 11/27/21 14:29 Case Management Note by Davida Barger PATIENT FEELS CONFIDENT IN [facility] HOME THIS EVENING AND FOLLOWING UP WITH [facility] TOMORROW, HE REPORTS HE HAS ENOUGH HEMOPHILIA MEDS AT HOME FOR EXTRA DOSES INSTRUCTED. HE REPORTS HIS FRIEND LUIS ENRIQUE COULD STAY WITH HIM IF HE FELT HE NEEDED HIM TO BUT STATED HE FELT FINE BEING HOME ALONE. Initialized on 11/27/21 14:29 - END OF NOTE 11/27/21 13:59 Case Management Note by Davida Barger Addendum entered by Davida Barger 11/27/21 14:34: BILLY NOTIFIED- WILL FAX RECORDS Original Note: [facility] WILL NEED ALL RECORDS FAXED TO THEM AT [phone]. PATIENT HAS AN APPOINTMENT TOMORROW AT 1PM WITH THEM. THEY WILL NEED THIS INFORMATION FOR THAT APPOINTMENT Initialized on 11/27/21 13:59 - END OF NOTE 11/27/21 13:47 Case Management Note by Davida Barger S/W NURSE AT [facility]- DR. PURI AWARE PATIENT IS HERE- NO SPECIFIC RECOMMENDATIONS FAR CARE . PATIENT HAS AN APPOINTMENT WITH [facility] 11/28/21@ 1 PM Initialized on 11/27/21 13:47 - END OF NOTE 11/27/21 13:08 Nursing Note by Maire De Call back from Dr Leiva office and order to give major dose Factor 8 med (same dose as AM dose) tonight and give med bid for 2 days Initialized on 11/27/21 13:08 - END OF NOTE 11/27/21 12:54 Case Management Note by Davida Barger S/W DIONNE AT [facility]- NOTIFIED WE ARE STILL WAITING ON BED AT [facility] CONTEMPLATING DC HOME SO HE CAN GET TO WOUND CENTER FOR FOLLOWUP. SHE VERIFIED UNDERSTANDING. SHE WILL S/W DR. PURI WHEN HE GETS IN. SHE WAS GIVEN DR. PABLO CELL NUMBER FOR DR. PURI TO CALL TO DISCUSS CASE Initialized on 11/27/21 12:54 - END OF NOTE 11/27/21 12:51 Nursing Note by Marie De Called Leona at Dr Leiva office ([phone]) to request dose of Recombivant Factor 8 if needed this kalyan. Initialized on 11/27/21 12:51 - END OF NOTE 11/27/21 09:15 Case Management Note by Ghazala Barahona SPOKE WITH TEX, BED CONTROL, [facility]. REPORTS THAT NO BEDS AVAIL AT THIS TIME AND NO IDEA WHEN THEY WILL HAVE A BED OPEN UP. . Initialized on 11/27/21 09:15 - END OF NOTE 11/27/21 07:47 CONDOMINIUM MANAGER Note by Hyacinth Anne pt weighed this am and weight was off so zeroed the bed and reweighed pt. pt weight this am is 51.7 kg this retail zone specialist reported the weight to nurse Kelvin De. Initialized on 11/27/21 07:47 - END OF NOTE - Vitals & Intake/Output Vital Signs: Vital Signs Temperature 98.6 F 11/27/21 16:00 Pulse Rate 84 11/27/21 16:00 Respiratory Rate 16 11/27/21 16:00 Blood Pressure 179/82 11/27/21 16:00 O2 Sat by Pulse Oximetry 97 11/27/21 16:00 Intake & Output: Intake & Output 11/25/21 11/26/21 11/27/21 11/28/21 11:59 11:59 11:59 11:59 Intake Total 1770 2052 720 Output Total 125 350 300 Balance 1645 1702 420 Weight 49.2 kg 51.7 kg - Lab Result Diagrams: 11/26/21 05:14 11/26/21 05:14 Micro Results-Entire Visit: Microbiology 11/25/21 13:30 Blood Culture Gram Stain - Final Blood Blood Culture - Preliminary Coagulase Negative Staph. Possible Contaminant. Clinical judgement required. NO FURTHER WORKUP WILL BE PERFORMED UNLESS PHYSICIAN REQUESTED WITHIN THE NEXT 72 HOURS 11/25/21 13:25 Wound Culture - Preliminary Skin - Right Front ORGANISMS ISOLATED ARE CONSISTENT WITH NORMAL SKIN SALO LIGHT GROWTH, NO PREDOMINANT ORGANISM 11/25/21 13:58 Urine Culture - Final Clean Catch Midstream <10K NORMAL SKIN SALO PROBABLE SKIN CONTAMINANT Discharge Exam General Appearance: no apparent distress, alert Neurologic Exam: alert, oriented x 3, cooperative, normal mood/affect, nml cerebellar function, sensation nml, No motor deficits Eye Exam: PERRL, EOMI, eyes nml inspection Ears, Nose, Throat Exam: normal ENT inspection, pharynx normal, moist mucous membranes Neck Exam: normal inspection, non-tender, supple, full range of motion Respiratory Exam: normal breath sounds, lungs clear, No respiratory distress Cardiovascular Exam: regular rate/rhythm, normal heart sounds Gastrointestinal/Abdomen Exam: soft, No tenderness, No mass Male Genitalia Exam: deferred Rectal Exam: deferred Back Exam: normal inspection, normal range of motion, No CVA tenderness, No vertebral tenderness Extremity Exam: normal inspection, normal range of motion Skin Exam: normal color, warm, dry Final Diagnosis/Problem List - Final Discharge Diagnosis/Problem (1) Chronic osteomyelitis involving lower leg Current Visit: Yes Status: Acute Assessment & Plan: Chief Complaint Diagnosis pain in leg right side Allergies Allergy/AdvReac Type Severity Reaction Status Date / Time No Known Drug Allergies Allergy Verified 11/25/21 17:54 Vital Signs (Last 24 hours) Temp Pulse Resp BP Pulse Ox 11/27/21 16:00 98.6 F 84 16 179/82 97 11/27/21 12:00 97.4 F 62 16 173/93 96 11/27/21 07:17 97.8 F 61 16 131/63 99 11/27/21 04:00 97.1 F 55 L 16 136/60 98 11/27/21 00:00 97.5 F 95 H 18 147/67 96 11/26/21 20:00 97.5 F 50 L 16 141/64 98 Home Medications Medication Instructions Recorded Confirmed Last Taken Type Docusate Sodium 100 mg 100 mg PO DAILY 11/25/21 11/25/21 Unknown History [Docusate Sodium 100 MG] Famotidine 20 mg PO BID 11/25/21 11/25/21 Unknown History Folic Acid/Vit B Complex and C 1 each PO DAILY 11/25/21 11/25/21 Unknown History [B-Complex Plus Vitamin C Cplt] Gabapentin [Neurontin ] 1 - 2 tab PO TID 11/25/21 11/25/21 Unknown History Oxycodone HCl 15 mg PO Q4H PRN PRN 11/25/21 11/25/21 Unknown History Pregabalin 50 mg [Lyrica 50 mg PO BID 11/25/21 11/25/21 Unknown History 50MG] ondansetron HCL [Zofran] 4 mg PO DAILY 11/25/21 11/25/21 Unknown History Current Medications Generic Name Dose Route Start Last Admin Trade Name Freq PRN Reason Stop Dose Admin Celecoxib 200 mg 11/25/21 22:00 11/27/21 10:11 Celecoxib 100 Mg Capsule PO 12/25/21 21:59 200 mg BID CHUYITA Administration Docusate Sodium 100 mg 11/26/21 10:00 11/27/21 10:11 Docusate Sodium 100 Mg Capsule PO 12/26/21 09:59 100 mg DAILY CHUYITA Administration Famotidine 20 mg 11/26/21 10:00 11/27/21 10:11 Famotidine 20 Mg Tablet PO 12/26/21 09:59 20 mg BID CHUYITA Administration Gabapentin 300 - 600 mg 11/26/21 10:00 11/27/21 15:42 Gabapentin 300 Mg Capsule PO 12/26/21 09:59 300 mg TID CHUYITA Administration Sodium Chloride 1,000 mls @ 100 mls/hr 11/25/21 13:30 11/27/21 12:14 Sodium Chloride 0.9% 1000 Ml IV 12/25/21 13:29 100 mls/hr .Q10H CHUYITA Administration Metronidazole 500 mg in 100 mls @ 200 mls/hr 11/25/21 18:00 11/27/21 16:53 Flagyl 500 Mg Ivpb IV 12/25/21 17:59 200 mls/hr Q6HT CHUYITA Administration Vancomycin HCl 0.5 gm/ Sodium 100 mls @ 125 mls/hr 11/26/21 22:00 11/27/21 10:13 Chloride IV 12/26/21 21:59 125 mls/hr Q12HT CHUYITA Administration Ceftazidime 2 gm/ Dextrose 100 mls @ 200 mls/hr 11/26/21 10:00 11/27/21 10:12 IV 12/25/21 15:29 200 mls/hr Q12HT CHUYITA Administration Lorazepam 1 - 2 mg 11/26/21 07:13 11/26/21 21:04 Lorazepam 1 Mg Tablet PO 12/26/21 07:12 1 mg HS PRN PRN Administration ANXIETY Methadone HCl 20 mg 11/26/21 07:14 11/27/21 16:49 Methadone Hcl 10 Mg Tab PO 12/01/21 07:13 20 mg TID PRN PRN Administration PAIN Multivitamins 1 tab 11/26/21 10:00 11/27/21 10:14 Vitamin B Complex With Vit. C Tablet PO 12/26/21 09:59 1 tab DAILY CHUYITA Administration Ondansetron HCl 4 mg 11/25/21 15:33 11/26/21 20:55 Ondansetron Hcl 4 Mg/2 Ml Vial IV 12/25/21 15:32 4 mg Q6H PRN PRN Administration NAUSEA/VOMITING Oxycodone HCl 15 mg 11/25/21 22:24 11/26/21 21:26 Oxycodone Hcl 5 Mg Ir Tab PO 11/30/21 22:23 15 mg Q4H PRN PRN Administration PAIN Recombinate-Factor 8 2,520 each 11/26/21 20:00 11/26/21 21:03 (Viii) IV 12/26/21 19:59 2,520 each Q24H PRN Administration Recombinate-Factor 8 2,520 each 11/28/21 08:00 (Viii) IV 12/26/21 10:59 0800 CHUYITA Pregabalin 50 mg 11/25/21 22:00 11/27/21 10:11 Pregabalin 50 Mg Capsule PO 12/25/21 21:59 50 mg BID CHUYITA Administration Discontinued Medications Generic Name Dose Route Start Last Admin Trade Name Gretel PRN Reason Stop Dose Admin Bacitracin Zinc Confirm 11/25/21 13:26 Bacitracin Packet 1 Each Pckt Administered 11/25/21 13:27 Dose 10 each .ROUTE .STK-MED ONE Bacitracin Zinc 9 each 11/25/21 13:43 11/25/21 13:44 Bacitracin Packet 1 Each Pckt TP 11/25/21 13:44 9 each STAT ONE Administration Famotidine 20 mg 11/25/21 22:00 11/25/21 21:53 Famotidine 20 Mg Tablet PO 11/25/21 22:01 20 mg ONCE ONE Administration Gabapentin 300 mg 11/25/21 22:00 11/25/21 21:49 Gabapentin 300 Mg Capsule PO 12/25/21 21:59 300 mg BID CHUYITA Administration Vancomycin HCl 1 gm in 200 mls @ 125 mls/hr 11/25/21 15:17 11/25/21 16:03 Vancomycin 1 Gram/200 Ml Bag IV 11/25/21 16:52 125 mls/hr STAT ONE 125 mls/hr Administration Metronidazole 500 mg in 100 mls @ 200 mls/hr 11/25/21 15:19 11/25/21 16:01 Flagyl 500 Mg Ivpb IV 11/25/21 15:48 Infused STAT STA Infusion Ceftazidime 2 gm/ Dextrose 100 mls @ 200 mls/hr 11/25/21 15:30 11/26/21 11:02 IV 12/25/21 15:29 Not Given Q8HT [facility] Metronidazole Confirm 11/25/21 15:23 Flagyl 500 Mg Ivpb Administered 11/25/21 15:24 Dose 500 mg in 100 mls @ ud IV .STK-MED ONE Vancomycin HCl Confirm 11/25/21 16:03 Vancomycin 1 Gram/200 Ml Bag Administered 11/25/21 16:04 Dose 1 gm in 200 mls @ ud IV .STK-MED ONE Vancomycin HCl 1 gm in 200 mls @ 125 mls/hr 11/25/21 16:15 11/25/21 18:38 Vancomycin 1 Gram/200 Ml Bag IV 12/25/21 16:14 Not Given Q12H CHUYITA Vancomycin HCl 500 gm/ Sodium 250 mls @ 125 mls/hr 11/26/21 22:00 Chloride IV 12/26/21 21:59 Q12HT CHUYITA Lorazepam 1 mg 11/25/21 22:00 11/25/21 21:49 Lorazepam 1 Mg Tablet PO 12/25/21 21:59 1 mg HS CHUYITA Administration Methadone HCl 20 mg 11/25/21 22:00 11/25/21 18:11 Methadone Hcl 10 Mg Tab PO 11/30/21 21:59 20 mg TID CHUYITA Administration Methadone HCl Confirm 11/25/21 18:06 Methadone Hcl 10 Mg Tab Administered 11/25/21 18:07 Dose 20 mg .ROUTE .STK-MED ONE Miscellaneous Medication 1 ea 11/25/21 22:00 11/25/21 20:26 Miscellaneous Medication Order 1 Ea Each MC 11/25/21 22:01 1 ea NOW ONE Administration Patient Own Med : 0 each 11/26/21 10:00 11/26/21 11:10 Recombinate-Factor 8 IV 12/26/21 09:59 Not Given (Viii) DAILY CHUYITA Recombinate-Factor 8 0 each 11/26/21 11:00 11/27/21 07:56 (Viii) IV 12/26/21 10:59 2,525 each 0800 CHUYITA Administration Recombinate-Factor 8 0 each 11/26/21 20:00 (Viii) IV 12/26/21 19:59 Q24H PRN Recombinate-Factor 8 1,248 each 11/27/21 12:45 (Viii) IV 12/26/21 19:59 Q24H PRN Intake & Output (Last 24 hours) 11/25/21 11/26/21 11/27/21 11/28/21 11:59 11:59 11:59 11:59 Intake Total 1770 2052 720 Output Total 125 350 300 Balance 1645 1702 420 Weight 49.2 kg 51.7 kg Microbiology Results (Last 24 hours) 11/25/21 13:30 Blood Blood Culture Gram Stain - Final 11/25/21 13:30 Blood Blood Culture - Preliminary Coagulase Negative Staph. Possible Contaminant. Clinical judgement required. NO FURTHER WORKUP WILL BE PERFORMED UNLESS PHYSICIAN REQUESTED WITHIN THE NEXT 72 HOURS 11/25/21 13:25 Skin - Right Front Wound Culture - Preliminary ORGANISMS ISOLATED ARE CONSISTENT WITH NORMAL SKIN SALO LIGHT GROWTH, NO PREDOMINANT ORGANISM 11/25/21 13:58 Clean Catch Midstream Urine Culture - Final <10K NORMAL SKIN SALO PROBABLE SKIN CONTAMINANT Orders (Last 24 hours) Category Date Time Status Miscellaneous Nursing Order ROUTINE Care 11/27/21 14:59 Active Discharge Routine Discharge 11/27/21 Ordered Discharge/Telephone Order Routine Discharge 11/27/21 15:02 Active Patient Own Med [Patient Own Medication] Med 11/27/21 12:45 Discontinued 1,248 each IV Q24H PRN Patient Own Med [Patient Own Medication] Med 11/28/21 08:00 Active 2,520 each IV 0800 Patient Own Med [Patient Own Medication] Med 11/26/21 20:00 Active 2,520 each IV Q24H PRN Patient Own Med [Patient Own Medication] Med 11/26/21 20:00 Discontinued See Dose Instructions IV Q24H PRN Vancomycin HCl Inj [Vancocin Injection] 0.5 gm Med 11/26/21 22:00 Active NaCl 0.9% 100 ml Mini-Bag Plus [Sodium Chloride 100ML MINI-BAG PLUS] 100 ml IV Q12HT Vancomycin HCl Inj [Vancocin Injection] 500 gm Med 11/26/21 22:00 Discontinued NaCl 0.9% 250 ml [Sodium Chloride 0.9% 250 ML] 250 ml IV Q12HT Patient Care Notes (Last 24 hours) 11/27/21 15:23 Nursing Note by Iris Lopez I faxed patients D/C paperwork to [facility] [phone]. and let them know of his d/c to home plan for today [phone]. Initialized on 11/27/21 15:23 - END OF NOTE 11/27/21 15:21 Nursing Note by Iris Lopez I faxed patients chart to [facility] [phone]. Initialized on 11/27/21 15:21 - END OF NOTE 11/27/21 14:29 Nursing Note by Marie De Spoke with Dr Munson and pt will be discharged this kalyan after his 1800 Flagyl dose. Spoke with pt and ELLIE Montaño about DC. Emphasized that important to keep wound center appt tomorrow at [place] and discuss plan for continued anthibiotic therapy. Notified Kim at Dr Leiva office about plan and to see if she wants to see him sooner than scheduled appt. Office will call back. Pt instructed to take major dose of Factor 8 med this kalyan and tomorrow as per Dr Leiva and understanding verbalized. Initialized on 11/27/21 14:29 - END OF NOTE 11/27/21 14:29 Case Management Note by Davida Barger PATIENT FEELS CONFIDENT IN [facility] HOME THIS EVENING AND FOLLOWING UP WITH [facility] TOMORROW, HE REPORTS HE HAS ENOUGH HEMOPHILIA MEDS AT HOME FOR EXTRA DOSES INSTRUCTED. HE REPORTS HIS FRIEND LUIS ENRIQUE COULD STAY WITH HIM IF HE FELT HE NEEDED HIM TO BUT STATED HE FELT FINE BEING HOME ALONE. Initialized on 11/27/21 14:29 - END OF NOTE 11/27/21 13:59 Case Management Note by Davida Barger Addendum entered by Davida Barger 11/27/21 14:34: [employer] NOTIFIED- WILL FAX RECORDS Original Note: [facility] WILL NEED ALL RECORDS FAXED TO THEM AT [phone]. PATIENT HAS AN APPOINTMENT TOMORROW AT 1PM WITH THEM. THEY WILL NEED THIS INFORMATION FOR THAT APPOINTMENT Initialized on 11/27/21 13:59 - END OF NOTE 11/27/21 13:47 Case Management Note by Davida Barger S/W NURSE AT [facility]- DR. PURI AWARE PATIENT IS HERE- NO SPECIFIC RECOMMENDATIONS FAR CARE . PATIENT HAS AN APPOINTMENT WITH [facility] 11/28/21@ 1 PM Initialized on 11/27/21 13:47 - END OF NOTE 11/27/21 13:08 Nursing Note by Marie De Call back from Dr Leiva office and order to give major dose Factor 8 med (same dose as AM dose) tonight and give med bid for 2 days Initialized on 11/27/21 13:08 - END OF NOTE 11/27/21 12:54 Case Management Note by Davida Barger S/W DIONNE AT [facility]- NOTIFIED WE ARE STILL WAITING ON BED AT [facility] CONTEMPLATING DC HOME SO HE CAN GET TO WOUND CENTER FOR FOLL OWUP. SHE VERIFIED UNDERSTANDING. SHE WILL S/W DR. PURI WHEN HE GETS IN. SHE WAS GIVEN DR. PABLO CELL NUMBER FOR DR. PURI TO CALL TO DISCUSS CASE Initialized on 11/27/21 12:54 - END OF NOTE 11/27/21 12:51 Nursing Note by Marie De Called Leona at Dr Leiva office ([phone]) to request dose of Recombivant Factor 8 if needed this kalyan. Initialized on 11/27/21 12:51 - END OF NOTE 11/27/21 09:15 Case Management Note by Ghazala Barahona SPOKE WITH TEX, BED CONTROL, [facility]. REPORTS THAT NO BEDS AVAIL AT THIS TIME AND NO IDEA WHEN THEY WILL HAVE A BED OPEN UP. . Initialized on 11/27/21 09:15 - END OF NOTE 11/27/21 07:47 CONDOMINIUM MANAGER Note by Hyacinth Anne pt weighed this am and weight was off so zeroed the bed and reweighed pt. pt weight this am is 51.7 kg this retail zone specialist reported the weight to nurse Kelvin De. Initialized on 11/27/21 07:47 - END OF NOTE Code(s): M86.669 - OTHER CHRONIC OSTEOMYELITIS, UNSPECIFIED TIBIA AND FIBULA - Discharge Discharge Date: 11/27/21 Disposition: Home, Self-Care Condition: Stable Prescriptions: Continue Lorazepam 1 mg [Ativan 1 MG] 1 - 2 mg PO HS PRN PRN Reason: Anxiety Methadone HCl 10 mg [DOLOPHINE 10MG Tablet] 2 tab PO TID PRN PRN PRN Reason: Pain Factor XIII [Corifact] 3,000 units IV BID Celecoxib [Celebrex] 200 mg PO BID Pregabalin 50 mg [Lyrica 50MG] 50 mg PO BID Gabapentin [Neurontin ] 1 - 2 tab PO TID Oxycodone HCl 15 mg PO Q4H PRN PRN PRN Reason: Pain Famotidine 20 mg PO BID Folic Acid/Vit B Complex and C [B-Complex Plus Vitamin C Cplt] 1 each PO DAILY Docusate Sodium 100 mg [Docusate Sodium 100 MG] 100 mg PO DAILY ondansetron HCL [Zofran] 4 mg PO DAILY Instructions: Osteomyelitis (DC) Additional Instructions: Keep 11/28 [place] [facility] appt and discus plan for continued antibiotic therapy. Take major dose Factor 8 med this evening and tomorrow evening in addition to reg scheduled dose per Dr Greist office. Follow up with November T 2:30 PM Follow up with: ROLLY LEIVA [NON-STAFF PHY W/O PRIVILEGES] - Call for Appointment PAULETTE PURI MD [Primary Care Provider] - 11/28/21 1:00 pm Forms: Discharge Instructions
[2021-11-28] MEDS ORDERED: PATIENT OWN MEDICATION IV SCH (08:00)
== END 2021-11-27 17:45 | disposition home health service (06) ==
LOC: ED 13:01 → MED SURG 17:16
PROVIDERS: ADMIT General Practice; ATTEND General Practice
DX: M86.661 Other chronic osteomyelitis, right tibia and fibula (principal); R41.82 Altered mental status, unspecified; M79.604 Pain in right leg; L08.9 Local infection of the skin and subcutaneous tissue, unspecified; K74.60 Unspecified cirrhosis of liver; Z79.899 Other long term (current) drug therapy; Z20.828 Contact with and (suspected) exposure to other viral communicable diseases
CPT/HCPCS: 0241U; 36415; 71045; 73560; 80053; 81015; 83605; 85025; 85652; 87040; 87070; 87086; 99284; G0378; J0713; J2405; J3370; A9270-GY

== ENCOUNTER 2021-12-07 21:04 | Emergency (ER) | payer MEDICARE, OTHER ==
[2021-12-07] MEDS ORDERED: Hydromorphone 1 mg/ml Injection IV ONE ×5 (21:19→23:17)
[2021-12-07] MEDS ORDERED: Zofran 4 MG/2 ML VIAL ONE (21:20)
[2021-12-07] MEDS ORDERED: Hydromorphone 1 mg/ml Injection ONE ×5 (21:20→23:19)
[2021-12-07] MEDS ORDERED: Zofran 4 MG/2 ML VIAL IV ONE (21:29)
--- NOTE | 2021-12-07 22:20 | ERPHSYRPT ---
- History of Present Illness Time Seen by Provider: 12/07/21 21:15 Source: patient Exam Limitations: no limitations Patient Subjective Stated Complaint: pt having pain in his rt elbow. thinks he has a bleed d/t hemophilia Triage Nursing Assessment: pt alert and oriented, answers questions approp. pt back per wheelchair, transfers to stretcher with assist of 1. respirations nonlabored. skin warm and dry. swelling and tenderness to rt arm. radial pulse wnl. 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 He is recently treated for cellulitis in the right lower extremity he does have 2500 of factor VIII with him. We did talk to his supervisor filling and packing Dr. Griffith in [place] she recommended we administer the 2500 units and control his pain. Occurred: this afternoon Method of Injury: unknown Quality: aching, throbbing Severity of Pain-Max: severe Severity of Pain-Current: severe Extremities Pain Location: elbow: right Modifying Factors: Improves With: pain medication Allergies/Adverse Reactions: No Known Drug Allergies Allergy (Verified 12/07/21 21:33) Home Medications: Factor XIII [Corifact] 3,000 units IV BID 09/28/12 [History] Lorazepam 1 mg [Ativan 1 MG] 1 - 2 mg PO HS PRN 09/28/12 [History] Methadone HCl 10 mg [DOLOPHINE 10MG Tablet] 2 tab PO TID PRN PRN 09/28/12 [History] Celecoxib [Celebrex] 200 mg PO BID 01/03/13 [History] Docusate Sodium 100 mg [Docusate Sodium 100 MG] 100 mg PO DAILY 11/25/21 [History] Famotidine 20 mg PO BID 11/25/21 [History] Folic Acid/Vit B Complex and C [B-Complex Plus Vitamin C Cplt] 1 each PO DAILY 11/25/21 [History] Gabapentin [Neurontin ] 1 - 2 tab PO TID 11/25/21 [History] Oxycodone HCl 15 mg PO Q4H PRN PRN 11/25/21 [History] Pregabalin 50 mg [Lyrica 50MG] 50 mg PO BID 11/25/21 [History] ondansetron HCL [Zofran] 4 mg PO DAILY 11/25/21 [History] Hx Tetanus, Diphtheria Vaccination/Date Given: No Hx Influenza Vaccination/Date Given: Yes (02/25) Hx Pneumococcal Vaccination/Date Given: Yes (unknown when) Travel Risk - International Travel Have you traveled outside of the country in past 3 weeks: No - Coronavirus Screening Are you exhibiting any of the following symptoms?: No Close contact with a COVID-19 positive Pt in past 14-21 Days: No - Vaccine Status Have you recieved a Covid-19 vaccination: Yes Residential Treatment Specialist: Unknown - Vaccination Dates Date of 2cond Vaccination (if applicable): na Dates if Unknown: na - Review of Systems Constitutional: No Fever, No Chills Eyes: No Symptoms Ears, Nose, & Throat: No Symptoms Respiratory: No Cough, No Dyspnea Cardiac: No Chest Pain, No Edema, No Syncope Abdominal/Gastrointestinal: No Abdominal Pain, No Nausea, No Vomiting, No Diarrhea Genitourinary Symptoms: No Dysuria Musculoskeletal: Joint Pain, Joint Swelling (Pain and swelling heat in the right elbow), No Back Pain, No Neck Pain Skin: No Rash Neurological: No Dizziness, No Focal Weakness, No Sensory Changes Psychological: No Symptoms Endocrine: No Symptoms All Other Systems: Reviewed and Negative - Past Medical History Pertinent Past Medical History: Yes Neurological History: No Pertinent History ENT History: No Pertinent History Cardiac History: No Pertinent History Respiratory History: No Pertinent History Endocrine Medical History: No Pertinent History Musculoskeletal History: Osteoarthritis, Osteoporosis GI Medical History: Cirrhosis History: No Pertinent History Psycho-Social History: No Pertinent History Male Reproductive Disorders: No Pertinent History Other Medical History: Bilat Total knee, 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 - Social History Smoking Status: Never smoker Exposure to second hand smoke: No Drug Use: none Patient Lives Alone: Yes - Nursing Vital Signs Nursing Vital Signs: Initial Vital Signs Temperature 97.3 F 12/07/21 21:10 Pulse Rate 69 12/07/21 21:10 Respiratory Rate 20 12/07/21 21:10 Blood Pressure 204/117 12/07/21 21:10 O2 Sat by Pulse Oximetry 96 12/07/21 21:10 Pain Scale Pain Intensity 6 - Physical Exam General Appearance: moderate distress, alert Eyes, Ears, Nose, Throat Exam: moist mucous membranes Neck Exam: non-tender, supple Cardiovascular/Respiratory Exam: chest non-tender, normal breath sounds, regular rate/rhythm, no respiratory distress Abdominal Exam: non-tender, No guarding Back Exam: normal inspection, No vertebral tenderness Shoulder Exam: normal inspection, non-tender, normal ROM Elbow/Forearm Exam: bone tenderness, limited ROM, soft tissue tenderness (Examination of the right elbow shows swelling heat erythema and tenderness. An obvious joint effusion present probably secondary to bleeding) Wrist Exam: normal inspection, non-tender, normal ROM Hand Exam: normal inspection, non-tender, normal ROM Neuro/Tendon Exam: normal sensation, normal motor functions Mental Status Exam: alert, oriented x 3, cooperative Skin Exam: normal color, warm, dry SpO2 Interpretation: normal SpO2: 96 O2 Delivery: Room Air - Course Nursing assessment & vital signs reviewed: Yes Ordered Tests: Medication Summary Discontinued Medications Generic Name Dose Route Start Last Admin Trade Name Adityaq PRN Reason Stop Dose Admin Hydromorphone HCl 2 mg 12/07/21 21:19 12/07/21 21:29 Hydromorphone 1 Mg/1ml Inj 1 Mg/Ml Syringe IV 12/07/21 21:20 2 mg STAT ONE Administration Hydromorphone HCl Confirm 12/07/21 21:20 Hydromorphone 1 Mg/1ml Inj 1 Mg/Ml Syringe Administered 12/07/21 21:21 Dose 2 mg .ROUTE .STK-MED ONE Hydromorphone HCl 2 mg 12/07/21 21:38 12/07/21 21:57 Hydromorphone 1 Mg/1ml Inj 1 Mg/Ml Syringe IV 12/07/21 21:39 2 mg STAT ONE Administration Hydromorphone HCl Confirm 12/07/21 21:54 Hydromorphone 1 Mg/1ml Inj 1 Mg/Ml Syringe Administered 12/07/21 21:55 Dose 2 mg .ROUTE .STK-MED ONE Hydromorphone HCl 2 mg 12/07/21 22:21 12/07/21 22:27 Hydromorphone 1 Mg/1ml Inj 1 Mg/Ml Syringe IV 12/07/21 22:22 2 mg STAT ONE Administration Hydromorphone HCl Confirm 12/07/21 22:23 Hydromorphone 1 Mg/1ml Inj 1 Mg/Ml Syringe Administered 12/07/21 22:24 Dose 2 mg .ROUTE .STK-MED ONE Hydromorphone HCl 2 mg 12/07/21 22:34 12/07/21 22:51 Hydromorphone 1 Mg/1ml Inj 1 Mg/Ml Syringe IV 12/07/21 22:35 2 mg STAT ONE Administration Hydromorphone HCl Confirm 12/07/21 22:48 Hydromorphone 1 Mg/1ml Inj 1 Mg/Ml Syringe Administered 12/07/21 22:49 Dose 2 mg .ROUTE .STK-MED ONE Hydromorphone HCl 2 mg 12/07/21 23:17 Hydromorphone 1 Mg/1ml Inj 1 Mg/Ml Syringe IV 12/07/21 23:18 STAT ONE Ondansetron HCl Confirm 12/07/21 21:20 Ondansetron Hcl 4 Mg/2 Ml Vial Administered 12/07/21 21:21 Dose 4 mg .ROUTE .STK-MED ONE Ondansetron HCl 4 mg 12/07/21 21:29 12/07/21 21:30 Ondansetron Hcl 4 Mg/2 Ml Vial IV 12/07/21 21:30 4 mg STAT ONE Administration - Progress Progress: improved Discussed with : Other (Dr Wesley) - Departure Departure Disposition: Home Clinical Impression: Hemophilia A Condition: Stable Critical Care Time: No Referrals: ROLLY DANGELO [Primary Care Provider] - Follow up/PCP as directed
[2021-12-07 23:05] VITALS: BP 189/88; PULSE 69
[2021-12-07 23:20] VITALS: O2SAT 96
== END 2021-12-07 23:54 | disposition home or self-care (01) ==
LOC: ED 21:04
DX: D66 Hereditary factor VIII deficiency (principal); M25.021 Hemarthrosis, right elbow; M25.521 Pain in right elbow; Z79.899 Other long term (current) drug therapy
CPT/HCPCS: 96374; 96375; 96376; 99284; J1170; J2405

== ENCOUNTER 2021-12-09 02:11 | Emergency (ER) | payer MEDICARE, OTHER ==
--- NOTE | 2021-12-09 02:28 | ERPHSYRPT ---
- History of Present Illness Time Seen by Provider: 12/09/21 02:28 Source: patient Exam Limitations: no limitations Patient Subjective Stated Complaint: pt states he is having severe lower back pain an r elbow pain today worse than yesterday, pt was here yesterday. Triage Nursing Assessment: pt alert and oriented, hard of hearing, some info given by son. pt is grimacing and gaurding r arm Physician History: This is a 76-year-old white male who has a history of hemophilia A and was seen in our emergency department on 11/25/2021 for symptoms of chronic osteomyelitis and then again on 12/07/2021 with a spontaneous bleed into his right elbow. On the visit dated 12/07/2021, the patient did receive factor VIII intravenously. Patient was seen by his assistant reading teacher in [place] on 12/08/2021 with no specific instructions or labs obtained. Patient patient was dropped off by the POA at 8:30 PM. However, the patient contacted the POA at 1:30 AM with complaints of lower back pain. He also urinated on himself and was a bit confused. Patient denies fall. He denies hitting his head. He denies falling and injuring his back. Patient has a history of osteoarthritis and osteoporosis. Patient also has a history of intermittent chronic confusion. Patient is also taking oxycodone, Ativan and methadone. During his visit on 12/07/2021 emergency department provided the patient with several milligrams of Dilaudid intravenously because of his right elbow pain. Patient POA states that the patient is on doxycycline and Bactrim DS for chronic wound infection. Timing/Duration: today Method of Injury: other (None) Quality: aching Back Pain Location: lumbar spine, paraspinous muscles Severity of Pain-Max: moderate Severity of Pain-Current: moderate Modifying Factors: Improves With: movement Associated Symptoms: urinary incontinence (Mild episode), lower back pain, No fever, No chills, No loss of bowel control Previous symptoms: same symptoms as today, recently seen, recent hospitalizat ion, recently treated Allergies/Adverse Reactions: No Known Drug Allergies Allergy (Verified 12/09/21 02:23) Home Medications: Factor XIII [Corifact] 3,000 units IV BID 09/28/12 [History] Lorazepam 1 mg [Ativan 1 MG] 1 - 2 mg PO HS PRN 09/28/12 [History] Methadone HCl 10 mg [DOLOPHINE 10MG Tablet] 2 tab PO TID PRN PRN 09/28/12 [History] Celecoxib [Celebrex] 200 mg PO BID 01/03/13 [History] Docusate Sodium 100 mg [Docusate Sodium 100 MG] 100 mg PO DAILY 11/25/21 [History] Famotidine 20 mg PO BID 11/25/21 [History] Folic Acid/Vit B Complex and C [B-Complex Plus Vitamin C Cplt] 1 each PO DAILY 11/25/21 [History] Gabapentin [Neurontin ] 1 - 2 tab PO TID 11/25/21 [History] Oxycodone HCl 15 mg PO Q4H PRN PRN 11/25/21 [History] Pregabalin 50 mg [Lyrica 50MG] 50 mg PO BID 11/25/21 [History] ondansetron HCL [Zofran] 4 mg PO DAILY 11/25/21 [History] Hx Tetanus, Diphtheria Vaccination/Date Given: No Hx Influenza Vaccination/Date Given: Yes (02/25) Hx Pneumococcal Vaccination/Date Given: Yes (unknown when) Travel Risk - International Travel Have you traveled outside of the country in past 3 weeks: No - Coronavirus Screening Are you exhibiting any of the following symptoms?: No Close contact with a COVID-19 positive Pt in past 14-21 Days: No - Vaccine Status Have you recieved a Covid-19 vaccination: Yes Well Logging Captain Mud Analysis: Unknown - Vaccination Dates Dates if Unknown: unknown - Review of Systems Constitutional: No Symptoms Eyes: No Symptoms Ears, Nose, & Throat: No Symptoms Respiratory: No Symptoms Cardiac: No Symptoms Abdominal/Gastrointestinal: No Symptoms Genitourinary 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) Musculoskeletal: Back Pain, No Fall Skin: No Symptoms Neurological: No Symptoms Psychological: No Symptoms Endocrine: No Symptoms Hematologic/Lymphatic: No Symptoms Immunological/Allergic: No Symptoms - Past Medical History Pertinent Past Medical History: Yes Neurological History: No Pertinent History ENT History: No Pertinent History Cardiac History: No Pertinent History Respiratory History: No Pertinent History Endocrine Medical History: No Pertinent History Musculoskeletal History: Osteoarthritis, Osteoporosis GI Medical History: Cirrhosis History: No Pertinent History Psycho-Social History: No Pertinent History Male Reproductive Disorders: No Pertinent History Other Medical History: Bilat Total knee, 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 - Social History Smoking Status: Never smoker Exposure to second hand smoke: No Drug Use: none Patient Lives Alone: Yes - Nursing Vital Signs Nursing Vital Signs: Initial Vital Signs Temperature 97.7 F 12/09/21 02:15 Pulse Rate 97 H 12/09/21 02:15 Respiratory Rate 18 12/09/21 02:15 Blood Pressure 189/98 12/09/21 02:15 O2 Sat by Pulse Oximetry 96 12/09/21 02:15 Pain Scale Pain Intensity 6 - Physical Exam General Appearance: no apparent distress, alert, anxiety Eye Exam: PERRL/EOMI, eyes nml inspection Ears, Nose, Throat Exam: normal ENT inspection, moist mucous membranes Neck Exam: normal inspection, non-tender, supple, full range of motion Respiratory Exam: normal breath sounds, lungs clear, airway intact, No chest tenderness, No respiratory distress Cardiovascular Exam: regular rate/rhythm, normal heart sounds, normal peripheral pulses Gastrointestinal Exam: soft, normal bowel sounds, No tenderness Rectal Exam: not done Extremity Exam: pelvis stable, swelling (Right elbow), tenderness (Right elbow), other (Low back pain) Neurologic Exam: alert, oriented x 3, cooperative, circle beveler II-XII nml as tested, normal mood/affect, sensation nml Skin Exam: warm, dry, other (Patient with right lower extremity wound bandage in place.) Lymphatic Exam: No adenopathy SpO2 Interpretation: normal SpO2: 96 O2 Delivery: Room Air - Course Nursing assessment & vital signs reviewed: Yes Ordered Tests: Active Orders 24 hr Category Date Time Status HEAD WITHOUT CONTRAST [CT] Stat Exams 12/09/21 02:38 Taken LUMBAR SPINE W/O [CT] Stat Exams 12/09/21 02:44 Taken CBC W DIFF Stat Lab 12/09/21 03:15 Completed CMP Stat Lab 12/09/21 03:20 Completed CULTURE,URINE Stat Lab 12/09/21 03:02 Received UA W/RFX CULTURE Stat Lab 12/09/21 03:02 Completed Medication Summary Discontinued Medications Generic Name Dose Route Start Last Admin Trade Name Gretel PRN Reason Stop Dose Admin Levofloxacin/Dextrose 750 mg in 150 mls @ 100 mls/hr 12/09/21 03:40 12/09/21 03:52 Levofloxacin 750mg/150ml D5w IV 12/09/21 05:09 100 ml/hr STAT STA 100 mls/hr Administration Levofloxacin/Dextrose Confirm 12/09/21 03:51 Levofloxacin 750mg/150ml D5w Administered 12/09/21 03:52 Dose 750 mg in 150 mls @ ud IV .MD Revolution-MED ONE Lab/Rad Data: Laboratory Result Diagrams 12/09/21 03:15 12/09/21 03:20 Laboratory Results 12/09/21 12/09/21 12/09/21 Range/Units 03:20 03:15 03:02 WBC 12.5 H (4.0-10.5) x10^3/uL RBC 3.31 L (4.1-5.6) x10^6/uL Hgb 10.2 L (12.5-18.0) g/dL Hct 32.2 L (42-50) % MCV 97.3 (78-100) fL MCH 30.8 (26-32) pg MCHC 31.7 L (32-36) g/dL RDW 13.6 (11.5-14.0) % Plt Count 237 (150-450) x10^3/uL MPV 9.0 (7.5-11.0) fL Gran % 84.0 H (36.0-66.0) % Immature Gran % (Auto) 0.5 H (0.00-0.4) % Nucleat RBC Rel Count 0.0 (0.00-0.1) % Eos # (Auto) 0 (0-0.5) x10^3/uL Immature Gran # (Auto) 0.06 H (0.00-0.03) x10^3u/L Absolute Lymphs (auto) 1.04 (1.0-4.6) x10^3/uL Absolute Monos (auto) 0.87 (0.0-1.3) x10^3/uL Absolute Nucleated RBC 0.00 (0.00-0.01) x10^3u/L Lymphocytes % 8.3 L (24.0-44.0) % Monocytes % 6.9 (0.0-12.0) % Eosinophils % 0.0 (0.00-5.0) % Basophils % 0.3 (0.0-0.4) % Absolute Granulocytes 10.51 H (1.4-6.9) x10^3/uL Basophils # 0.04 (0-0.4) x10^3/uL Sodium 136 L (137-145) mmol/L Potassium 4.2 (3.5-5.1) mmol/L Chloride 102 (98-107) mmol/L Carbon Dioxide 31 H (22-30) mmol/L Anion Gap 7.8 (5-15) MEQ/L BUN 15 (9-20) mg/dL Creatinine 0.80 (0.66-1.25) mg/dL Estimated GFR > 60.0 ML/MIN Glucose 129 H (74-106) mg/dL Calcium 8.9 (8.4-10.2) mg/dL Total Bilirubin 0.60 (0.2-1.3) mg/dL AST 36 (17-59) U/L ALT 16 (0-50) U/L Alkaline Phosphatase 115 (38-126) U/L Serum Total Protein 7.5 (6.3-8.2) g/dL Albumin 3.4 L (3.5-5.0) g/dL Urinalys Dipstick Clnc MAIN LAB Urine Color YELLOW (YELLOW) Urine Appearance SLIGHTLY CLOUDY (CLEAR) Urine pH 6.0 (5-6) Ur Specific [place] 1.025 (1.005-1.025) POC Urine Protein Conf 100 (Negative) Urine Ketones TRACE (NEGATIVE) Urine Nitrite NEGATIVE (NEGATIVE) Urine Bilirubin NEGATIVE (NEGATIVE) Urine Urobilinogen 0.2 (0-1) mg/dL Urine Leukocytes TRACE (NEGATIVE) Urine WBC (Auto) 16-25 (0-5) /HPF Urine RBC (Auto) >101 (0-2) /HPF U Epithel Cells (Auto) RARE (FEW) /HPF Urine Bacteria (Auto) RARE (NEGATIVE) /HPF Urine RBC LARGE (0-5) [place]/ul Urine Mucus (Auto) SLIGHT (NEGATIVE) /HPF Ur Culture Indicated? YES Urine Glucose NEGATIVE (NEGATIVE) mg/dL - Progress Progress: improved, pain not gone completely, re-examined Progress Note: 12/09/21 06:05 CAT scan of the head shows no acute intracranial abnormality. CAT scan of the lumbar spine shows L2 with mild spinal stenosis present. Medical decision making: This patient was reexamined after IV fluids, IV antibiotics and his confusion has resolved. He states his pain is also improved. This occurred without infusing the patient with any narcotic pain medication. He did receive intravenous Levaquin for a urinary tract infection. Patient is also on doxycycline and Bactrim DS. We assume this is for treatment of his leg infection ?MRSA/staph. Dr. Dawn is the audio visual specialist caring for this patient's wound and we will defer antibiotic use to him knowing that he has chronic osteomyelitis as well as a urinary tract infection. Counseled pt/family regarding: lab results, diagnosis, need for follow-up, rad results - Departure Departure Disposition: Home Clinical Impression: Complicated wound infection, Urinary tract infection Condition: Stable Critical Care Time: No Referrals: ROLLY DANGELO [Primary Care Provider] - Follow up/PCP as directed Additional Instructions: Hold on taking doxycycline and the Bactrim DS until after you spoke with your speech and language specialist. Take all your other medication as prescribed. Contact all your specialist today to update them on your recent emergency department evaluations management and results. Prescriptions: Levofloxacin [Levaquin 500 MG Tablet] 500 mg PO DAILY #7 tablet
[2021-12-09 03:21] LABS: Appearance SLIGHTLY CLOUDY (CLEAR); Bilirubin NEGATIVE (NEGATIVE); Glucose NEGATIVE (NEGATIVE); Ketones TRACE (NEGATIVE); Protein,Urine Dip 100 (Negative); RBC LARGE Ery/ul (0-5); Specific Gravity 1.025 (1.005-1.025)
[2021-12-09 03:22] LABS: Absolute Neutrophil Ct (ANC) 10.51 x10^3/uL (1.4-6.9); Basophil (Absolute #) 0.04 x10^3/uL (0-0.4); Eosinophil (Absolute #) 0 x10^3/uL (0-0.5); Hematocrit 32.2 % (42-50); Hemoglobin 10.2 g/dL (12.5-18.0); Lymphocyte (Absolute #) 1.04 x10^3/uL (1.0-4.6); Lymphocytes % 8.3 % (24.0-44.0); Mean Cell Volume 97.3 fL (78-100); Mean Corpuscular Hemoglobin 30.8 pg (26-32); Mean Corpuscular Hgb Concent. 31.7 g/dL (32-36); Monocyte (Absolute #) 0.87 x10^3/uL (0.0-1.3); Monocytes % 6.9 % (0.0-12.0); Platelet Count 237 x10^3/uL (150-450); Red Blood Count 3.31 x10^6/uL (4.1-5.6); Red Cell Distribution Width 13.6 % (11.5-14.0); White Blood Count 12.5 x10^3/uL (4.0-10.5)
[2021-12-09 03:22] LABS: Dipstick done @ ? MAIN LAB; Nitrite NEGATIVE (NEGATIVE); Urobilinogen 0.2 mg/dL (0-1)
[2021-12-09 03:23] LABS: Bacteria RARE /HPF (NEGATIVE); Epithelial Cells RARE /HPF (FEW); Mucus SLIGHT /HPF (NEGATIVE)
[2021-12-09 03:24] LABS: RBC >101 /HPF (0-2); Urine Cultured Indicated? YES
[2021-12-09 03:38] LABS: ALBUMIN 3.4 g/dL (3.5-5.0); ALKALINE PHOSPHATASE 115 U/L (38-126); ANION GAP 7.8 MEQ/L (5-15); BLOOD UREA NITROGEN 15 mg/dL (9-20); CHLORIDE 102 mmol/L (98-107); Calcium 8.9 mg/dL (8.4-10.2); Carbon Dioxide 31 mmol/L (22-30); EST GLOMERULAR FILTRATION RATE > 60.0 ML/MIN; Glucose 129 mg/dL (74-106); Potassium 4.2 mmol/L (3.5-5.1); SGOT/AST 36 U/L (17-59); SGPT/ALT 16 U/L (0-50); SODIUM 136 mmol/L (137-145); Total Protein 7.5 g/dL (6.3-8.2)
[2021-12-09] MEDS ORDERED: LEVOFLOXACIN 750MG/150ML D5W 750 MG/150 ML BAG IV STA (03:40)
[2021-12-09] MEDS ORDERED: LEVOFLOXACIN 750MG/150ML D5W 750 MG/150 ML BAG IV ONE (03:51)
[2021-12-09 06:09] VITALS: O2SAT 96
[2021-12-09 06:35] VITALS: BP 160/99; PULSE 81
--- NOTE | 2021-12-10 00:36 | XRAY ---
Exam: CT of the head without IV contrast from 12/09/2021. CTDI: 53.92 mGy Comparison: [None.] Indication: 76-year-old male with confusion and/or disorientation, altered mental status/memory loss. Technique: Non-IV contrast axial images were obtained through the brain. Reconstructed coronal and sagittal images were created and reviewed. Findings: The ventricles appear within normal limits of size for the patient's age. Mild cortical atrophic changes are seen. No focal mass effect or midline shift is seen. I see no acute intracranial bleed or abnormal extra-axial fluid collection. Moderate bilateral periventricular and subcortical white matter changes are seen, likely reflecting chronic small vessel ischemic disease. A discrete low attenuation infarct within a major cerebral or cerebellar artery distribution is not seen. Structures of the posterior fossa appear unremarkable. The calvarium of the skull appears intact. The orbits reveal no significant abnormality. The visualized paranasal sinuses are clear without air-fluid levels. There is deviation of the nasal septum toward the left. Some dental amalgam causing artifactual streaking is seen within the mouth. The mastoid air cells are clear without effusion. There appears to be significant cerumen within the right external artery canal. Correlate clinically. The middle ear cavities appear grossly unremarkable. Impression: 1. I see no acute intracranial bleed or other acute intracranial process. 2. Aging brain with atrophic changes. 3. Moderate bilateral periventricular and subcortical white matter changes, likely reflecting chronic small vessel ischemic disease. A discrete low attenuation infarct is not seen.
--- NOTE | 2021-12-10 17:39 | XRAY ---
Exam: CT of the lumbar spine without IV contrast from 12/09/2021. CTDI: 22.70 mGy Comparison: CT of the abdomen with IV contrast including reconstructed coronal and sagittal images from 01/27/2016. Indication: 76-year-old male with confusion, low back pain. Technique: Non-IV contrast axial images were obtained from the lower thoracic spine down to the upper aspect of the sacrum. Reconstructed coronal and sagittal images were created and reviewed. The images were filmed with a sharp bone window filter. Findings: There appears to be a new moderate compression fracture deformity of the superior vertebral endplate of L2 as compared to the prior study from 01/27/2016. Mild cortical displacement is seen just to the right of midline on the coronal images and at the anterior and mid aspects of the superior L2 vertebral endplate. In addition, there is some cortical buckling at the upper posterior margin of the L2 vertebral body which protrudes posteriorly into the spinal canal causing moderate to marked spinal canal stenosis. AP dimension of the spinal sac at the upper L2 level measures 6.5 mm on midline sagittal image #35. In addition, there is a new mild generalized compression fracture deformity of the L4 vertebral body, again primarily affecting the superior endplate. Although new from 01/27/2016, the exact age of this second increased fracture deformity is not clear. This could be acute or subacute, although I see no significant cortex interruption or distinct fracture line. I again note a severe biconcave compression fracture deformity of T12 and stable mild anterior wedge compression fracture deformities of L3 and L5. Only the L1 vertebral body height remains fairly well-preserved. I see no AP subluxation or spondylolysis. The bones are demineralized. Mild anterior and posterior vertebral endplate spurring is seen throughout the lumbar spine with some vacuum disc phenomena within the anterior aspect of T12-L1 and the anterior and posterior aspects of L2-L3. There appears to be mild posterior facet joint arthropathy bilaterally at L2-L3 and L3-L4 and moderate posterior facet joint arthropathy bilaterally at L4-L5 and L5-S1. I also note considerable thickening of the ligamentum flavum throughout the lumbar spine. Multilevel mild to moderate bilateral neural foraminal narrowing is seen due to multilevel disc bulging, posterior vertebral endplate spurring, and facet joint arthropathy. There is mild to moderate diffuse bulging of the T12-L1 disc, although no significant spinal stenosis is seen at this level. I also note mild bulging of the L1-L2 disc with moderate to marked spinal canal spinal stenosis at this level due to the superior vertebral endplate L2 fracture which protrudes posteriorly into the spinal canal. See above. Diffuse bulging of the disc, hypertrophy of the ligamentum flavum, and posterior vertebral endplate spurring and facet joint arthropathy appear to cause a marked central canal spinal stenosis at L2-L3. At L3-L4, diffuse bulging of the disc, posterior vertebral endplate spurring, hypertrophy of the ligament flavum, and facet joint arthropathy cause a marked lumbar canal spinal stenosis. Diffuse bulging of the L4-L5 disc coupled with osteoarthritic spurring and ligamentum flavum hypertrophy causes a moderate to marked lumbar canal spinal stenosis at L4-L5. At L5-S1, there is mild diffuse bulging of the disc and thickening of the ligamentum flavum without any significant cysts lumbar canal spinal stenosis. A definite significant acute lumbar herniated nucleus pulposus cannot be detected by this exam. Numerous calcified granulomas are seen within the spleen. There is been progression of a staghorn calculus within the left upper collecting system and renal pelvis which is considerably larger than on 2015. I also note more nonobstructing calculi within the right kidney. Correlate clinically. A calcified, mildly tortuous abdominal aorta is seen. No abdominal aortic aneurysm is evident. Impression: 1. There appears to be an acute moderate compression fracture deformity affecting primarily the superior vertebral endplate of L2. Posterior cortical buckling is seen at the upper posterior margin of L2 which protrudes into the spinal canal resulting in a marked lumbar canal spinal stenosis, the AP diameter in the midline being about 6.5 mm. 2. In addition, there is a new mild to moderate compression deformity of L4 as compared to 01/27/2016. The exact age of this worsening is not clear. An acute or subacute fracture is not excluded at this level. 3. Compression fracture deformities at T12, L3, and L5 appear similar to 01/27/2016. 4. Bone demineralization, multilevel lumbar canal spinal stenosis (most pronounced from L1-L2 through L4-L5), and moderate multilevel bilateral neural foraminal narrowing secondary to degenerative changes are also seen. 5. Enlarging left renal staghorn calculus and increased number and size of multiple renal calculi in the right kidney. Correlate clinically.
== END 2021-12-09 06:29 | disposition home or self-care (01) ==
LOC: ED 02:11
DX: N39.0 Urinary tract infection, site not specified (principal); L08.9 Local infection of the skin and subcutaneous tissue, unspecified; R41.0 Disorientation, unspecified; D66 Hereditary factor VIII deficiency; Z79.891 Long term (current) use of opiate analgesic; Z79.899 Other long term (current) drug therapy
CPT/HCPCS: 36415; 70450; 72131; 80053; 81015; 85025; 87086; 96365; 99283; J1956

== ENCOUNTER 2021-12-09 14:23 | Emergency (ER) | payer MEDICARE, OTHER ==
[2013-01-27 11:42] VITALS: BP 122/67
== END 2021-12-09 14:41 | disposition left against medical advice (07) ==
LOC: ED 14:23
DX: Z53.21 Procedure and treatment not carried out due to patient leaving prior to being seen by health care provider (principal)

== ENCOUNTER 2022-03-06 11:23 | Emergency (ER) | payer MEDICARE, OTHER ==
[2022-03-06] MEDS ORDERED: Zofran 4 MG/2 ML VIAL IV ONE (12:00)
[2022-03-06] MEDS ORDERED: Hydromorphone 1 mg/ml Injection IV ONE ×4 (12:00→16:44)
--- NOTE | 2022-03-06 12:16 | ERPHSYRPT ---
- History of Present Illness Time Seen by Provider: 03/06/22 11:31 Historian: patient, family Exam Limitations: no limitations Patient Subjective Stated Complaint: pt to ER with complaints of left flank pain since yesterday. pt denies N/V. pt family member states pt was in hospital in [facility] 2-3 months ago for kidney stone/kidney infection and then was in [facility] for 4 weeks and just released 4 weeks ago. Triage Nursing Assessment: pt A&Ox3. pt wheelchair bound. pt states he has had left flank pain since yesterday. skin pwd. pt with melara port. 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 No fever or chills reported. Also report having some difficulty urination with dysuria and increased frequency but no urgency or hesitancy. Timing/Duration: yesterday, gradual onset, worse Activities at Onset: rest Quality: sharpness Abdominal Pain Onset Location: flank Pain Radiation: no radiation Severity of Pain-Max: moderate Severity of Pain-Current: moderate Modifying Factors: Worsens With: movement, palpation Associated Symptoms: nausea Previous symptoms: same symptoms as today Allergies/Adverse Reactions: No Known Drug Allergies Allergy (Verified 03/06/22 11:52) Home Medications: Factor XIII [Corifact] 3,000 units IV BID 09/28/12 [History] Lorazepam 1 mg [Ativan 1 MG] 1 - 2 mg PO HS PRN 09/28/12 [History] Methadone HCl 10 mg [DOLOPHINE 10MG Tablet] 2 tab PO TID PRN PRN 09/28/12 [History] Celecoxib [Celebrex] 200 mg PO BID 01/03/13 [History] Docusate Sodium 100 mg [Docusate Sodium 100 MG] 100 mg PO DAILY 11/25/21 [History] Famotidine 20 mg PO BID 11/25/21 [History] Folic Acid/Vit B Complex and C [B-Complex Plus Vitamin C Cplt] 1 each PO DAILY 11/25/21 [History] Gabapentin [Neurontin ] 1 - 2 tab PO TID 11/25/21 [History] Oxycodone HCl 15 mg PO Q4H PRN PRN 11/25/21 [History] Pregabalin 50 mg [Lyrica 50MG] 50 mg PO BID 11/25/21 [History] ondansetron HCL [Zofran] 4 mg PO DAILY 11/25/21 [History] Amlodipine Besylate 10 mg PO DAILY 03/06/22 [History] Hx Tetanus, Diphtheria Vaccination/Date Given: No Hx Influenza Vaccination/Date Given: Yes (02/25) Hx Pneumococcal Vaccination/Date Given: Yes (unknown when) Travel Risk - International Travel Have you traveled outside of the country in past 3 weeks: No - Coronavirus Screening Are you exhibiting any of the following symptoms?: No Close contact with a COVID-19 positive Pt in past 14-21 Days: No - Vaccine Status Have you recieved a Covid-19 vaccination: Yes 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 - Vaccination Dates Date of 2cond Vaccination (if applicable): unk Dates if Unknown: unknown - Review of Systems Constitutional: Fatigue, Weakness Eyes: No Symptoms Ears, Nose, & Throat: No Symptoms Respiratory: No Symptoms Cardiac: No Symptoms Abdominal/Gastrointestinal: Abdominal Pain, Nausea Genitourinary Symptoms: Dysuria, Frequency Musculoskeletal: Arthralgias Skin: No Symptoms Neurological: No Symptoms Endocrine: No Symptoms Hematologic/Lymphatic: Easy Bleeding, Easy Bruising - Past Medical History Pertinent Past Medical History: Yes Neurological History: No Pertinent History ENT History: No Pertinent History Cardiac History: No Pertinent History Respiratory History: No Pertinent History Endocrine Medical History: No Pertinent History Musculoskeletal History: Osteoarthritis, Osteoporosis GI Medical History: Cirrhosis History: No Pertinent History Psycho-Social History: No Pertinent History Male Reproductive Disorders: No Pertinent History Other Medical History: Bilat Total knee, 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 melara port placed - Social History Smoking Status: Never smoker Exposure to second hand smoke: No Drug Use: none Patient Lives Alone: Yes - Nursing Vital Signs Nursing Vital Signs: Initial Vital Signs Temperature 98.5 F 03/06/22 11:43 Pulse Rate 88 03/06/22 11:43 Respiratory Rate 17 03/06/22 11:43 O2 Sat by Pulse Oximetry 99 03/06/22 11:43 Pain Scale Pain Intensity 5 - Physical Exam General Appearance: no apparent distress, alert Eye Exam: PERRL/EOMI Ears, Nose, Throat Exam: pharynx normal Neck Exam: normal inspection, full range of motion Respiratory Exam: normal breath sounds, lungs clear Cardiovascular Exam: regular rate/rhythm, normal heart sounds Gastrointestinal/Abdomen Exam: soft, normal bowel sounds, tenderness (Right flank/right lower quadrant) Extremity Exam: pelvis stable Neurologic Exam: alert, oriented x 3, cooperative Skin Exam: normal color SpO2 Interpretation: normal SpO2: 99 O2 Delivery: Room Air Ordered Tests: Active Orders 24 hr Category Date Time Status IV Insertion STAT Care 03/06/22 12:00 Active NPO (ED) STAT Care 03/06/22 12:00 Active ABDOMEN AND PELVIS W/0 CONTRAS [CT] Stat Exams 03/06/22 13:46 Completed BLOOD CULTURE Stat Lab 03/06/22 12:00 Received CBC W DIFF Stat Lab 03/06/22 12:57 Completed CMP Stat Lab 03/06/22 12:57 Completed CULTURE,URINE Stat Lab 03/06/22 Received LIPASE Stat Lab 03/06/22 12:57 Completed Lactic Acid Stat Lab 03/06/22 13:00 Completed UA W/RFX CULTURE Stat Lab 03/06/22 Completed Medication Summary Discontinued Medications Generic Name Dose Route Start Last Admin Trade Name Gretel PRN Reason Stop Dose Admin Hydromorphone HCl 0.5 mg 03/06/22 12:00 03/06/22 12:50 Hydromorphone 1 Mg/1ml Inj 1 Mg/Ml Syringe IV 03/06/22 12:01 0.5 mg STAT ONE Administration Hydromorphone HCl Confirm 03/06/22 12:32 Hydromorphone 1 Mg/1ml Inj 1 Mg/Ml Syringe Administered 03/06/22 12:33 Dose 1 mg .ROUTE .STK-MED ONE Hydromorphone HCl 0.5 mg 03/06/22 12:48 03/06/22 13:15 Hydromorphone 1 Mg/1ml Inj 1 Mg/Ml Syringe IV 03/06/22 12:49 0.5 mg STAT ONE Administration Hydromorphone HCl Confirm 03/06/22 13:02 Hydromorphone 1 Mg/1ml Inj 1 Mg/Ml Syringe Administered 03/06/22 13:03 Dose 1 mg .ROUTE .STK-MED ONE Hydromorphone HCl 0.5 mg 03/06/22 15:01 03/06/22 15:21 Hydromorphone 1 Mg/1ml Inj 1 Mg/Ml Syringe IV 03/06/22 15:02 0.5 mg STAT ONE Administration Hydromorphone HCl Confirm 03/06/22 15:17 Hydromorphone 1 Mg/1ml Inj 1 Mg/Ml Syringe Administered 03/06/22 15:18 Dose 1 mg .ROUTE .STK-MED ONE Ceftriaxone Sodium/Dextrose 2 g in 50 mls @ 100 mls/hr 03/06/22 15:01 03/06/22 15:48 Rocephin 2 Gm-D5w 50ml Bag IV 03/06/22 15:30 Infused STAT STA Infusion Ceftriaxone Sodium/Dextrose Confirm 03/06/22 15:18 Rocephin 2 Gm-D5w 50ml Bag Administered 03/06/22 15:19 Dose 2 g in 50 mls @ ud IV .STK-MED ONE Ondansetron HCl 4 mg 03/06/22 12:00 03/06/22 12:51 Ondansetron Hcl 4 Mg/2 Ml Vial IV 03/06/22 12:01 4 mg STAT ONE Administration Ondansetron HCl Confirm 03/06/22 12:32 Ondansetron Hcl 4 Mg/2 Ml Vial Administered 03/06/22 12:33 Dose 4 mg .ROUTE .STK-MED ONE Lab/Rad Data: Laboratory Result Diagrams 03/06/22 12:57 03/06/22 12:57 Laboratory Results 03/06/22 03/06/22 03/06/22 Range/Units Unknown 13:00 12:57 WBC (4.0-10.5) x10^3/uL RBC (4.1-5.6) x10^6/uL Hgb (12.5-18.0) g/dL Hct (42-50) % MCV (78-100) fL MCH (26-32) pg MCHC (32-36) g/dL RDW (11.5-14.0) % Plt Count (150-450) x10^3/uL MPV (7.5-11.0) fL Gran % (36.0-66.0) % Immature Gran % (Auto) (0.00-0.4) % Nucleat RBC Rel Count (0.00-0.1) % Eos # (Auto) (0-0.5) x10^3/uL Immature Gran # (Auto) (0.00-0.03) x10^3u/L Absolute Lymphs (auto) (1.0-4.6) x10^3/uL Absolute Monos (auto) (0.0-1.3) x10^3/uL Absolute Nucleated RBC (0.00-0.01) x10^3u/L Lymphocytes % (24.0-44.0) % Monocytes % (0.0-12.0) % Eosinophils % (0.00-5.0) % Basophils % (0.0-0.4) % Absolute Granulocytes (1.4-6.9) x10^3/uL Basophils # (0-0.4) x10^3/uL Sodium 139 (137-145) mmol/L Potassium 4.5 (3.5-5.1) mmol/L Chloride 104 (98-107) mmol/L Carbon Dioxide 30 (22-30) mmol/L Anion Gap 8.9 (5-15) MEQ/L BUN 14 (9-20) mg/dL Creatinine 0.65 L (0.66-1.25) mg/dL Estimated GFR > 60.0 ML/MIN Glucose 105 (74-106) mg/dL Lactic Acid 0.6 (0.4-2.0) Calcium 8.7 (8.4-10.2) mg/dL Total Bilirubin 0.40 (0.2-1.3) mg/dL AST 37 (17-59) U/L ALT 18 (0-50) U/L Alkaline Phosphatase 152 H (38-126) U/L Serum Total Protein 8.1 (6.3-8.2) g/dL Albumin 3.9 (3.5-5.0) g/dL Lipase 25 (23-300) U/L Urinalys Dipstick Clnc MAIN LAB Urine Color YELLOW (YELLOW) Urine Appearance CLEAR (CLEAR) Urine pH 6.0 (5-6) Ur Specific [place] 1.025 (1.005-1.025) POC Urine Protein Conf 100 (Negative) Urine Ketones NEGATIVE (NEGATIVE) Urine Nitrite NEGATIVE (NEGATIVE) Urine Bilirubin NEGATIVE (NEGATIVE) Urine Urobilinogen 0.2 (0-1) mg/dL Urine Leukocytes SMALL (NEGATIVE) Urine WBC (Auto) 26-50 (0-5) /HPF Urine RBC (Auto) 51-100 (0-2) /HPF U Epithel Cells (Auto) RARE (FEW) /HPF Urine Bacteria (Auto) RARE (NEGATIVE) /HPF Urine RBC MODERATE (0-5) Polo/ul Urine Mucus (Auto) SLIGHT (NEGATIVE) /HPF Ur Culture Indicated? YES Urine Glucose NEGATIVE (NEGATIVE) mg/dL 03/06/22 Range/Units 12:57 WBC 8.1 (4.0-10.5) x10^3/uL RBC 3.66 L (4.1-5.6) x10^6/uL Hgb 10.0 L (12.5-18.0) g/dL Hct 32.8 L (42-50) % MCV 89.6 (78-100) fL MCH 27.3 (26-32) pg MCHC 30.5 L (32-36) g/dL RDW 13.3 (11.5-14.0) % Plt Count 201 (150-450) x10^3/uL MPV 9.1 (7.5-11.0) fL Gran % 83.1 H (36.0-66.0) % Immature Gran % (Auto) 0.2 (0.00-0.4) % Nucleat RBC Rel Count 0.0 (0.00-0.1) % Eos # (Auto) 0.02 (0-0.5) x10^3/uL Immature Gran # (Auto) 0.02 (0.00-0.03) x10^3u/L Absolute Lymphs (auto) 0.84 L (1.0-4.6) x10^3/uL Absolute Monos (auto) 0.49 (0.0-1.3) x10^3/uL Absolute Nucleated RBC 0.00 (0.00-0.01) x10^3u/L Lymphocytes % 10.3 L (24.0-44.0) % Monocytes % 6.0 (0.0-12.0) % Eosinophils % 0.2 (0.00-5.0) % Basophils % 0.2 (0.0-0.4) % Absolute Granulocytes 6.74 (1.4-6.9) x10^3/uL Basophils # 0.02 (0-0.4) x10^3/uL Sodium (137-145) mmol/L Potassium (3.5-5.1) mmol/L Chloride (98-107) mmol/L Carbon Dioxide (22-30) mmol/L Anion Gap (5-15) MEQ/L BUN (9-20) mg/dL Creatinine (0.66-1.25) mg/dL Estimated GFR ML/MIN Glucose (74-106) mg/dL Lactic Acid (0.4-2.0) Calcium (8.4-10.2) mg/dL Total Bilirubin (0.2-1.3) mg/dL AST (17-59) U/L ALT (0-50) U/L Alkaline Phosphatase (38-126) U/L Serum Total Protein (6.3-8.2) g/dL Albumin (3.5-5.0) g/dL Lipase (23-300) U/L Urinalys Dipstick Clnc Urine Color (YELLOW) Urine Appearance (CLEAR) Urine pH (5-6) Ur Specific [place] (1.005-1.025) POC Urine Protein Conf (Negative) Urine Ketones (NEGATIVE) Urine Nitrite (NEGATIVE) Urine Bilirubin (NEGATIVE) Urine Urobilinogen (0-1) mg/dL Urine Leukocytes (NEGATIVE) Urine WBC (Auto) (0-5) /HPF Urine RBC (Auto) (0-2) /HPF U Epithel Cells (Auto) (FEW) /HPF Urine Bacteria (Auto) (NEGATIVE) /HPF Urine RBC (0-5) Polo/ul Urine Mucus (Auto) (NEGATIVE) /HPF Ur Culture Indicated? Urine Glucose (NEGATIVE) mg/dL - Progress Progress: improved, pain not gone completely, re-examined Progress Note: 03/06/22 15:31 77 years old is evaluated for left flank pain. He is given pain medications/Dilaudid multiple times to control his pain. Patient has normal white count, grossly unremarkable chemistries. Does have UTI and given a dose of Rocephin. CT abdomen pelvis showed increasing size of left staghorn stone from 3.9 to 5.2 cm but probably the reason for his pain. I have discussed with Dr. Cabrera who recommended transfer to facility with urology services and I do agree with him because of his pain which is worsening may need some intervention by urology especially in the setting of UTI, high risk for sepsis. Plan discussed with patient and family who understand and agree with plan of transf er. 03/06/22 16:[address] Khan at [facility], reviewed history, work-up and current management, agreed with transfer. Discussed with : Hunter, Other Counseled pt/family regarding: lab results, diagnosis, rad results - Departure Departure Disposition: Transfer Clinical Impression: Acute UTI, Staghorn renal calculus Condition: Stable Critical Care Time: No Referrals: ROLLY DANGELO [Primary Care Provider] - Follow up/PCP as directed
[2022-03-06] MEDS ORDERED: Hydromorphone 1 mg/ml Injection ONE ×4 (12:32→16:52)
[2022-03-06] MEDS ORDERED: Zofran 4 MG/2 ML VIAL ONE (12:32)
[2022-03-06 13:03] LABS: Absolute Neutrophil Ct (ANC) 6.74 x10^3/uL (1.4-6.9); Basophil (Absolute #) 0.02 x10^3/uL (0-0.4); Eosinophil % 0.2 % (0.00-5.0); Eosinophil (Absolute #) 0.02 x10^3/uL (0-0.5); Hematocrit 32.8 % (42-50); Lymphocyte (Absolute #) 0.84 x10^3/uL (1.0-4.6); Lymphocytes % 10.3 % (24.0-44.0); Mean Cell Volume 89.6 fL (78-100); Mean Corpuscular Hemoglobin 27.3 pg (26-32); Mean Corpuscular Hgb Concent. 30.5 g/dL (32-36); Mean Platelet Volume 9.1 fL (7.5-11.0); Monocyte (Absolute #) 0.49 x10^3/uL (0.0-1.3); Neutrophil % 83.1 % (36.0-66.0); Platelet Count 201 x10^3/uL (150-450); Red Blood Count 3.66 x10^6/uL (4.1-5.6); Red Cell Distribution Width 13.3 % (11.5-14.0); White Blood Count 8.1 x10^3/uL (4.0-10.5)
[2022-03-06 13:21] LABS: ALBUMIN 3.9 g/dL (3.5-5.0); ALKALINE PHOSPHATASE 152 U/L (38-126); ANION GAP 8.9 MEQ/L (5-15); BLOOD UREA NITROGEN 14 mg/dL (9-20); CHLORIDE 104 mmol/L (98-107); Calcium 8.7 mg/dL (8.4-10.2); Carbon Dioxide 30 mmol/L (22-30); Creatinine 1 0.65 mg/dL (0.66-1.25); EST GLOMERULAR FILTRATION RATE > 60.0 ML/MIN; Glucose 105 mg/dL (74-106); LIPASE 25 U/L (23-300); Potassium 4.5 mmol/L (3.5-5.1); SGOT/AST 37 U/L (17-59); SGPT/ALT 18 U/L (0-50); SODIUM 139 mmol/L (137-145); Total Protein 8.1 g/dL (6.3-8.2)
--- NOTE | 2022-03-06 14:18 | XRAY ---
Indication: Left flank pain. Multiple contiguous axial images obtained through the abdomen and pelvis without contrast using renal stone protocol. Comparison: CT abdomen January 27, 2016 Lung bases again demonstrates small lingula calcified granuloma. Minimal bibasilar subsegmental atelectasis/scarring. No infiltrate or effusion. Heart not enlarged. Left kidney demonstrates interval enlarging large staghorn calculus now at least 5.2 cm in CC dimension, previously 3.9 cm. Right kidney again demonstrates multiple calculi increased in number and size, largest 1 cm. No hydronephrosis or evidence for obstructive uropathy. Right hip prosthesis produces extensive beam artifact limiting this level. Noncontrasted stomach and bowel loops nonobstructed with now moderate fecal debris in the right hemicolon. No gross free fluid/air. Again 6 mm gallstone and numerous tiny hepatic/splenic calcified granulomas. Remaining liver, gallbladder, pancreas, spleen, adrenal glands, kidneys, ureters, and bladder are unremarkable for noncontrast exam. Minimal scattered aortoiliac calcifications without AAA. Osseous structures again demonstrates osteopenia, mild dextroscoliosis, worsening multilevel thoracolumbar compression fractures, and mild left hip degenerative arthropathy. The left groin demonstrates 2.2 x 3.1 x 6.7 cm soft tissue mass, probable lymphadenopathy. Impression: 1. Beam artifact from right hip prosthesis. 2. Enlarging left renal staghorn calculus and worsening right renal calculi as detailed. Negative for hydronephrosis or evidence for obstructive uropathy. 3. Left groin soft tissue mass, probable lymphadenopathy. 4. Again osteopenia and multilevel thoracolumbar compression fractures. Compared to CT lumbar spine December 09, 2021, there is worsening 50-75% L2 height loss. 5. Again incidental cholelithiasis, arteriosclerotic disease, and evidence for old granulomatous disease.
[2022-03-06 14:50] LABS: Appearance CLEAR (CLEAR); Bilirubin NEGATIVE (NEGATIVE); Dipstick done @ ? MAIN LAB; Glucose NEGATIVE (NEGATIVE); Ketones NEGATIVE (NEGATIVE); Nitrite NEGATIVE (NEGATIVE); Protein,Urine Dip 100 (Negative); RBC MODERATE Ery/ul (0-5); Specific Gravity 1.025 (1.005-1.025); Urobilinogen 0.2 mg/dL (0-1)
[2022-03-06 14:54] LABS: Bacteria RARE /HPF (NEGATIVE); Epithelial Cells RARE /HPF (FEW); Mucus SLIGHT /HPF (NEGATIVE); RBC 51-100 /HPF (0-2); Urine Cultured Indicated? YES; WBC 26-50 /HPF (0-5)
[2022-03-06] MEDS ORDERED: ROCEPHIN 2 Gm-D5w 50ML BAG** 2 G/50 ML IVPB IV STA (15:01)
[2022-03-06] MEDS ORDERED: ROCEPHIN 2 Gm-D5w 50ML BAG** 2 G/50 ML IVPB IV ONE (15:18)
[2022-03-06 15:28] VITALS: BP 136/73
[2022-03-06 17:27] VITALS: PULSE 86; O2SAT 98
== END 2022-03-06 17:04 | disposition short-term general hospital (02) ==
LOC: ED 11:23
DX: N39.0 Urinary tract infection, site not specified (principal); N20.0 Calculus of kidney; Z87.442 Personal history of urinary calculi; R10.9 Unspecified abdominal pain; R11.0 Nausea; R30.0 Dysuria; D66 Hereditary factor VIII deficiency; Z87.440 Personal history of urinary (tract) infections; Z79.899 Other long term (current) drug therapy
CPT/HCPCS: 36415; 74176; 80053; 81015; 83605; 83690; 85025; 87040; 87086; 96365; 96374; 96375; 96376; 99285; J0696; J1170; J2405